=== PATIENT | female | born 1945 | race Caucasian/White ===

== ENCOUNTER → 2017-02-10 | Outpatient (CLI) | payer MEDICARE, OTHER ==
[2016-12-03 11:00] VITALS: BP 107/59
[~2017-02-10] MED LIST: ACET160L15 PO; BENZ1LOZ48 MM; DIPH1TAB PO; DOCU50LI14 PO; ERGO50002 PO; GUAI100L27 PO; GUAI600T47 PO; HYDR28OI2 TP; IBUP100O24 PO; IBUP200C9 PO; LOPE2CAP PO; LORA10TA3 PO; MAG355OR30 PO; MAGN2400 PO; MELA3TAB2 PO; MELO7.5T29 PO; OMEP20CA9 PO; PSEU30TA24 PO; PSYL369P PO; RANI150C PO; TOLN30CR2 TP
--- NOTE | 2017-02-10 12:43 | KCIC ---
Examination: 2 views of the chest HISTORY: History of cough, shortness of breath for one month COMPARISON: 12/01/2016 Findings : There is moderate size density in the left lung could be moderate pleural effusion or consolidation or less likely atelectasis. Patchy airspace opacities identified in the right lung base and left lingula likely pneumonia or atelectasis. IMPRESSION: 1. Moderate size density projects in the left lung probably moderate pleural effusion or consolidation. Patchy right lung base airspace opacities and left lingular airspace opacities likely pneumonia or atelectasis. CT chest is recommended. Electronically signed by: Heath Larson MD (02/10/2017 12:40 PM) [id number]
== END | disposition home or self-care (01) ==
LOC: KCIC 11:51
PROVIDERS: ATTEND Family Medicine
DX: R91.8 Other nonspecific abnormal finding of lung field (principal); R05 Cough; R06.02 Shortness of breath
CPT/HCPCS: 71020

== ENCOUNTER 2017-02-15 12:16 | Emergency (ER) | payer MEDICARE, OTHER ==
[~2017-02-15] VITALS: Ht 149.9 cm; Wt 45.4 kg
--- NOTE | 2017-02-15 14:56 | PHYS DOC ---
Past Medical History Past Medical History: Other Additional Past Medical Histor: SEASONAL ALLERGIES,MR Past Surgical History: Hip Replacement Additional Past Surgical Histo: BILATERAL Alcohol Use: None Drug Use: None Adult General Chief Complaint Chief Complaint: OTHER COMPLAINTS HPI HPI Patient is a 71 year old female who presents with mental retardation with progressive dysphagia over the past 1 year. Apparently some x-ray at outside facility was abnormal but we don't know what they were. The patient yells out but does not answer questions which is baseline. 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 Review of Systems Review of Systems Constitutional: Denies fever or chills [] Eyes: Denies change in visual acuity, redness, or eye pain [] HENT: Denies nasal congestion or sore throat [] Respiratory: Denies cough or shortness of breath [] Cardiovascular: No additional information not addressed in HPI [] GI: Denies abdominal pain, nausea, vomiting, bloody stools or diarrhea [] : Denies dysuria or hematuria [] Musculoskeletal: Denies back pain or joint pain [] Integument: Denies rash or skin lesions [] Neurologic: Denies headache, focal weakness or sensory changes [] Endocrine: Denies polyuria or polydipsia [] All other systems were reviewed and found to be within normal limits, except as documented in this note. Current Medications Current Medications Current Medications Medications (Trade) Dose Ordered Sig/Caden Start Time Stop Time Status Last Admin Dose Admin Info (Do NOT chart on this entry -- for MONITORING) 1 each PRN DAILY PRN 02/15/17 17:30 02/15/17 18:45 DC Iohexol (Omnipaque 300 Mg/ml) 200 ml 1X ONCE 02/15/17 15:00 02/15/17 15:01 DC Sodium Chloride 1,000 ml @ 1,000 mls/hr 1X ONCE 02/15/17 17:30 02/15/17 18:29 DC 02/15/17 17:21 1,000 MLS/HR Allergies Allergies Allergies Coded Allergies Type Severity Reaction Last Updated Verified No Known Drug Allergies 11/16/13 No Physical Exam Physical Exam Constitutional: Well developed, well nourished, no acute distress, non-toxic appearance. [] HENT: Normocephalic, atraumatic, bilateral external ears normal, oropharynx moist, no oral exudates, nose normal. Posterior pharynx is completely normal airway is patent no stridor no drooling. [] Eyes: PERRLA, EOMI, conjunctiva normal, no discharge. [] Neck: Normal range of motion, no tenderness, supple, no stridor. [] Cardiovascular:Heart rate regular rhythm, no murmur [] Lungs & Thorax: Bilateral breath sounds clear to auscultation [] Abdomen: Bowel sounds normal, soft, no tenderness, no masses, no pulsatile masses. [] Skin: Warm, dry, no erythema, no rash. [] Back: No tenderness, no CVA tenderness. [] Extremities: No tenderness, no cyanosis, no clubbing, ROM intact, no edema. [] Neurologic: Alert and oriented X 3, normal motor function, normal sensory function, no focal deficits noted. [] Psychologic: Affect normal, judgement normal, mood normal. [] Current Patient Data Vital Signs Vital Signs Date Time Temp Pulse Resp B/P (MAP) Pulse Ox O2 Delivery O2 Flow Rate FiO2 02/15/17 18:31 123 132/73 (92) 93 Room Air 02/15/17 14:07 97.8 18 97.8 Lab Values Laboratory Tests Test 02/15/17 14:49 White Blood Count 5.6 x10^3/uL (4.0-11.0) Red Blood Count 4.03 x10^6/uL (3.50-5.40) Hemoglobin 12.8 g/dL (12.0-15.5) Hematocrit 38.5 % (36.0-47.0) Mean Corpuscular Volume 96 fL (79-100) Mean Corpuscular Hemoglobin 32 pg (25-35) Mean Corpuscular Hemoglobin Concent 33 g/dL (31-37) Red Cell Distribution Width 15.0 % (11.5-14.5) H Platelet Count 431 x10^3/uL (140-400) H Neutrophils (%) (Auto) 65 % (31-73) Lymphocytes (%) (Auto) 21 % (24-48) L Monocytes (%) (Auto) 10 % (0-9) H Eosinophils (%) (Auto) 2 % (0-3) Basophils (%) (Auto) 1 % (0-3) Neutrophils # (Auto) 3.7 x10^3uL (1.8-7.7) Lymphocytes # (Auto) 1.2 x10^3/uL (1.0-4.8) Monocytes # (Auto) 0.6 x10^3/uL (0.0-1.1) Eosinophils # (Auto) 0.1 x10^3/uL (0.0-0.7) Basophils # (Auto) 0.1 x10^3/uL (0.0-0.2) Sodium Level 139 mmol/L (136-145) Potassium Level 5.2 mmol/L (3.5-5.1) H Chloride Level 104 mmol/L (98-107) Carbon Dioxide Level 31 mmol/L (21-32) Anion Gap 4 (6-14) L Blood Urea Nitrogen 14 mg/dL (7-20) Creatinine 0.7 mg/dL (0.6-1.0) Estimated GFR (Cockcroft-Gault) 83.0 BUN/Creatinine Ratio 20 (6-20) Glucose Level 82 mg/dL (70-99) Calcium Level 9.4 mg/dL (8.5-10.1) Total Bilirubin 0.5 mg/dL (0.2-1.0) Aspartate Amino Transferase (AST) 22 U/L (15-37) Alanine Aminotransferase (ALT) 15 U/L (14-59) Alkaline Phosphatase 102 U/L (46-116) Total Protein 7.9 g/dL (6.4-8.2) Albumin 2.6 g/dL (3.4-5.0) L Albumin/Globulin Ratio 0.5 (1.0-1.7) L Thyroid Stimulating Hormone (TSH) 1.683 uIU/mL (0.358-3.74) Laboratory Tests 02/15/17 14:49 Laboratory Tests 02/15/17 14:49 EKG EKG [] Radiology/Procedures Radiology/Procedures Swallowing study showed[ Shankle's diverticulum and cricopharyngeus prominence but no obstruction no lesions seen per radiology report] Course & Med Decision Making Course & Med Decision Making Pertinent Labs and Imaging studies reviewed. (See chart for details) [Check labs to gauge by mouth intake and try to obtain an esophagram to reestablish patency or if there is a lesion or stricture. Patient was able take by mouth during her stay in the emergency department. Esophagram showed no obstruction there was a Zenker's diverticulum and some prominence of the cricopharyngeus area. I discussed the case with the mid-level provider for ENT they are agreeable to following up in their office. As the patient will likely need an EGD. Patient is stable for dismissal for outpatient follow-up. Patient did have some persistent tachycardia prior to dismissal. We will plan to give a liter of normal saline we'll check an EKG. I believe some of this tachycardia appears to be more related to her behavior and agitation rather than actual dehydration. Do not suspect sepsis white count was normal no fever and her creatinine was normal arguing against any significant dehydration. TSH was normal. On dismissal, patient was smiling and very happy and requesting to eat food.] Dragon Disclaimer Dragon Disclaimer This electronic medical record was generated, in whole or in part, using a voice recognition dictation system. Departure Departure Impression: Primary Impression: Dysphagia Additional Impression: Zenker's hypopharyngeal diverticulum Disposition: 01 HOME, SELF-CARE Condition: STABLE Referrals: SANJANA PIZARRO MD (PCP) Problem Qualifiers MIKAYLA MORGAN MD Feb 15, 2017 14:56
[2017-02-15] MEDS ORDERED: IOHEXOL 300 MG/ML 50 ML VIAL. PO ONE (15:00)
[2017-02-15 15:10] LABS: BASO # 0.1 x10^3/uL (0.0-0.2); BASO % 1 % (0-3); EOS % 2 % (0-3); HEMATOCRIT 38.5 % (36.0-47.0); HEMOGLOBIN 12.8 g/dL (12.0-15.5); LYMPH # 1.2 x10^3/uL (1.0-4.8); LYMPH % 21 % (24-48); MEAN CORPUSCULAR HEMOGLOBIN 32 pg (25-35); MEAN CORPUSCULAR HGB CONC 33 g/dL (31-37); MEAN CORPUSCULAR VOLUME 96 fL (79-100); MONO % 10 % (0-9); NEUT % 65 % (31-73); PLATELET COUNT 431 x10^3/uL (140-400); RED BLOOD COUNT 4.03 x10^6/uL (3.50-5.40); WHITE BLOOD COUNT 5.6 x10^3/uL (4.0-11.0)
[2017-02-15 15:18] LABS: CALCIUM 9.4 mg/dL (8.5-10.1); CREATININE 0.7 mg/dL (0.6-1.0); POTASSIUM 5.2 mmol/L (3.5-5.1)
[2017-02-15 15:28] LABS: ALBUMIN 2.6 g/dL (3.4-5.0); ALBUMIN/GLOBULIN RATIO 0.5 (1.0-1.7); TOTAL BILIRUBIN 0.5 mg/dL (0.2-1.0); TOTAL PROTEIN 7.9 g/dL (6.4-8.2)
--- NOTE | 2017-02-15 15:42 | RAD ---
Limited esophagram, 02/15/2017: History: Dysphasia The study was compromised by the patient's inability to fully cooperate. Patient positioning is suboptimal. We were eventually able to convince her to ingest 2 consecutive drinks of the nonionic contrast. 1.9 minutes of fluoroscopy time was utilized. 5 dynamic fluoroscopic spot sequences were recorded. There is a prominent cricopharyngeal impression in the cervical esophagus with a small Zenker's diverticulum. Contrast does flow past this region into the thoracic esophagus. No thoracic obstructive process is seen. Contrast extends into the stomach. No javon aspiration into the trachea was observed. IMPRESSION: Limited exam demonstrating a cricopharyngeal bar with a small associated Zenkers diverticulum.
[2017-02-15] MEDS ORDERED: IV NORMAL SALINE 1000ML BAG 1,000 ML IV ONE (17:30)
[2017-02-15] MEDS ORDERED: CONTRAST GIVEN MC PRN (17:30)
[2017-02-15 18:31] VITALS: BP 132/73
--- NOTE | 2017-02-16 12:12 | EKG ---
[facility] [address] [place] [address] Test Date: 2017-02-15 Test Time: 17:31:17 Pat Name: FELECIA DICKSON Department: Room: Gender: F Director Of Market Intelligence: [place] : 1945 Requested By: MIKAYLA MORGNA Order Number: [id number] Reading MD: Gunnar Mendez Measurements Intervals [place] Rate: 124 P: -141 GA: 132 QRS: -14 QRSD: 88 T: 24 QT: 306 QTc: 443 Interpretive Statements SINUS TACHYCARDIA LEFTWARD AXIS QRS(T) CONTOUR ABNORMALITY CONSIDER ANTEROSEPTAL MYOCARDIAL DAMAGE POSSIBLY ABNORMAL ECG RI6.01 No previous ECG available for comparison Electronically Signed On 02-16-2017 16:01:38 ART CONSULTANT by Gunnar Mendez
== END 2017-02-15 18:44 | disposition home or self-care (01) ==
LOC: ER 12:16
DX: K22.5 Diverticulum of esophagus, acquired (principal); F79 Unspecified intellectual disabilities
CPT/HCPCS: 36415; 74220; 80053; 84443; 85025; 93005; 96360; 99285; J7030

== ENCOUNTER → 2017-11-07 | Outpatient (CLI) | payer MEDICARE, OTHER | END | disposition home or self-care (01) | LOC: US 11:05 | DX: I70.8 Atherosclerosis of other arteries (principal); I73.9 Peripheral vascular disease, unspecified; L97.929 Non-pressure chronic ulcer of unspecified part of left lower leg with unspecified severity; L97.919 Non-pressure chronic ulcer of unspecified part of right lower leg with unspecified severity | CPT/HCPCS: 93925 ==

== ENCOUNTER → 2017-11-08 | Outpatient (CLI) | payer MEDICARE, OTHER | END | disposition home or self-care (01) | LOC: PMGWOUND 09:19 | DX: S91.312A Laceration without foreign body, left foot, initial encounter (principal); S91.311A Laceration without foreign body, right foot, initial encounter; S81.812A Laceration without foreign body, left lower leg, initial encounter; S81.811A Laceration without foreign body, right lower leg, initial encounter; K21.9 Gastro-esophageal reflux disease without esophagitis; I48.91 Unspecified atrial fibrillation; I73.9 Peripheral vascular disease, unspecified; X58.XXXA Exposure to other specified factors, initial encounter; Y93.89 Activity, other specified; Y92.89 Other specified places as the place of occurrence of the external cause; Y99.8 Other external cause status | CPT/HCPCS: 99205 ==

== ENCOUNTER 2017-11-17 08:01 | Inpatient (IN) | payer MEDICARE, OTHER ==
[~2017-11-17] VITALS: Ht 154.9 cm; Wt 36.5 kg
[2017-11-17] VITALS (16 sets, daily range): BP systolic 115–146; BP diastolic 43–59
[~2017-11-17 08:01] MED LIST changes: -IBUP100O24 PO; +IBUP100O25 PO
[2017-11-17] MEDS ORDERED: PROPOFOL 50 ML IV ONE (08:56)
[2017-11-17] MEDS ORDERED: PROPOFOL 20 ML IV ONE (08:56)
[2017-11-17] MEDS ORDERED: MIDAZOLAM HCL/PF 2 MG/2 ML VIAL. ONE (08:56)
[2017-11-17] MEDS ORDERED: fentaNYL PF VIAL 100 MCG/2 ML VIAL ONE (08:56)
[2017-11-17 09:05] LABS: BASO % 1 % (0-3); EOS % 1 % (0-3); HEMATOCRIT 37.1 % (36.0-47.0); HEMOGLOBIN 12.9 g/dL (12.0-15.5); LYMPH % 20 % (24-48); MEAN CORPUSCULAR HEMOGLOBIN 34 pg (25-35); MEAN CORPUSCULAR HGB CONC 35 g/dL (31-37); MEAN CORPUSCULAR VOLUME 98 fL (79-100); MONO # 0.5 x10^3/uL (0.0-1.1); MONO % 10 % (0-9); NEUT # 3.2 x10^3uL (1.8-7.7); NEUT % 68 % (31-73); PLATELET COUNT 281 x10^3/uL (140-400); RED BLOOD COUNT 3.78 x10^6/uL (3.50-5.40); RED CELL DISTRIBUTION WIDTH 14.8 % (11.5-14.5); WHITE BLOOD COUNT 4.8 x10^3/uL (4.0-11.0)
[2017-11-17 09:09] LABS: CALCIUM 9.1 mg/dL (8.5-10.1); CREATININE 0.4 mg/dL (0.6-1.0); GFR 157.8; POTASSIUM 3.9 mmol/L (3.5-5.1)
[2017-11-17] MEDS ORDERED: PSEU30TA24 PO (09:14)
[2017-11-17] MEDS ORDERED: METO25TA4 PO (09:14)
[2017-11-17] MEDS ORDERED: DIPH25CA58 PO (09:14)
[2017-11-17] MEDS ORDERED: MELO7.5T29 PO (09:14)
[2017-11-17] MEDS ORDERED: [UNRECOGNIZED DRUG - CODE] PO (09:14)
[2017-11-17] MEDS ORDERED: IBUP-1027 PO (09:14)
[2017-11-17] MEDS ORDERED: ACET325T9 PO (09:14)
[2017-11-17] MEDS ORDERED: CYCL5TAB PO (09:14)
[2017-11-17] MEDS ORDERED: TIZA4TAB PO (09:14)
[2017-11-17] MEDS ORDERED: CLOT15CR5 TP (09:14)
[2017-11-17] MEDS ORDERED: POLY10DR3 EACHEYE (09:14)
[2017-11-17] MEDS ORDERED: HYDR-971 PO (09:14)
[2017-11-17] MEDS ORDERED: MAG355OR30 PO (09:14)
[2017-11-17] MEDS ORDERED: LORA10TA3 PO (09:14)
[2017-11-17] MEDS ORDERED: GUAI100L27 PO (09:14)
[2017-11-17] MEDS ORDERED: RANI150C PO (09:14)
[2017-11-17] MEDS ORDERED: IBUP100O25 PO (09:14)
[2017-11-17] MEDS ORDERED: HYDR59LO TP (09:14)
[2017-11-17] MEDS ORDERED: DOCU50LI14 PO (09:14)
[2017-11-17] MEDS ORDERED: LIDO30CR TP (09:14)
[2017-11-17] MEDS ORDERED: TOLN30CR2 TP (09:14)
[2017-11-17] MEDS ORDERED: IODIXANOL 320 MG/ML 100 ML VIAL. ONE (09:29)
[2017-11-17] MEDS ORDERED: HEPARIN for ARTERIAL LINE 1,500 ML ONE (09:30)
[2017-11-17] MEDS ORDERED: IODIXANOL 320MG/ML 50ML VIAL. ONE (09:30)
[2017-11-17] MEDS ORDERED: LIDOCAINE WITH 8.4% SOD BICARB 3 ML DISP.SYRIN. ONE (09:30)
[2017-11-17] MEDS ORDERED: LIDOCAINE WITH 8.4% SOD BICARB 3 ML DISP.SYRIN. IJ ONE (10:15)
[2017-11-17] MEDS ORDERED: IODIXANOL 320 MG/ML 100 ML VIAL. IART ONE (10:15)
[2017-11-17] MEDS ORDERED: SURGICEL FIBRILLAR 1X2 EACH. ONE (10:20)
[2017-11-17] MEDS ORDERED: IOHEXOL 300 MG/ML 100ML VIAL. ONE (10:20)
[2017-11-17] MEDS ORDERED: THROMBIN TOPICAL 20,000 UNIT SPRAY.SYRN KIT TP ONE (10:20)
[2017-11-17] MEDS ORDERED: GELATIN SPONGE SIZE 100. ONE (10:20)
[2017-11-17] MEDS ORDERED: CONTRAST GIVEN. MC PRN (10:30)
[2017-11-17] MEDS ORDERED: HEPARIN for IV BOLUS 10,000 UNIT/10 ML VIAL. IV ONE (11:15)
[2017-11-17] MEDS ORDERED: IV RINGERS,LACTATED 1000ML 1,000 ML IV SCH (11:23)
[2017-11-17] MEDS ORDERED: PROCHLORPERAZINE 10 MG/2 ML VIAL. IV PRN (11:30)
[2017-11-17] MEDS ORDERED: LIDOCAINE 1% PF 2 ML VIAL. ID PRN (11:30)
[2017-11-17] MEDS ORDERED: HYDROmorphone 2 MG/ML VIAL IV PRN (11:30)
[2017-11-17] MEDS ORDERED: fentaNYL PF VIAL 100 MCG/2 ML VIAL IV PRN ×2 (11:30)
[2017-11-17] MEDS ORDERED: ONDANSETRON PF 4 MG/2 ML VIAL. IV PRN ×2 (11:30→16:15)
[2017-11-17] MEDS ORDERED: MORPHINE SULFATE 2 MG/ML VIAL. IV PRN ×2 (11:30→16:15)
[2017-11-17] MEDS ORDERED: HEPARIN SODIUM 5,000 UNIT in IV NORMAL SALINE 500ML BAG 500 ML IRR ONE (12:00)
[2017-11-17] MEDS ORDERED: ePHEDrine PF IN SALINE 50 MG/5 ML DISP.SYRIN IV ONE (13:22)
--- NOTE | 2017-11-17 14:47 | OP ---
DATE OF SURGERY: 11/17/2017 ATTENDING PHYSICIAN: Johana Doss DO PREOPERATIVE DIAGNOSIS: Critical limb ischemia of the right lower extremity after failed Angio-Seal closure device. POSTOPERATIVE DIAGNOSIS: Critical limb ischemia of the right lower extremity after failed Angio-Seal closure device. PROCEDURES: 1. Right femoral exploration with femoral endarterectomy and bovine patch angioplasty. 2. Extraction of right common femoral artery Angio-Seal. 3. Right lower extremity femoral Dereck thrombectomy using #3 Dereck embolectomy catheter. ANESTHESIA: General. SPECIMENS: None. ESTIMATED BLOOD LOSS: 20 mL COMPLICATIONS: None. PREOPERATIVE INDICATIONS: The patient is a pleasant 72-year-old female with cerebral palsy, who was accompanied by her caregiver at the bedside. The patient underwent an Interventional Radiology angiogram procedure with no significant findings of arterial insufficiency. A closure device was inserted and deployed and then a problem was immediately recognized by Dr. Kelley that there might be a problem with the closure device. He checked with an ultrasound and there was occlusive flow within the common femoral artery. He immediately called our service line and we responded as an emergency. The patient was seen and evaluated in the preoperative area and found to have an exam consistent with right lower extremity critical limb ischemia. I did consent the patient's caregiver for the procedure and they demonstrated understanding and allowed us to proceed. OPERATIVE PROCEDURE: The patient was brought to the operating suite and placed in supine position. After establishing adequate general endotracheal anesthesia, the patient's right lower extremity was prepped and draped in sterile fashion. Next, a timeout procedure was performed. It was confirmed that the patient did receive appropriate preoperative antibiotics and the correct operative site was marked and draped. Following this, a right femoral incision was made and carried through the skin and subcutaneous tissue. Dissection was carried down to the common femoral artery where the common femoral artery was circumferentially dissected and controlled with vessel loop. Circumflex femoral vessels were also controlled with a vessel loop. Next, the distal common femoral artery was controlled with vessel loop. I was able to identify the entry point of the Angio-Seal as there was a string emanating from the central portion of the vessel. There was also visible thrombus within the lumen of the vessel and a palpable pulse in the proximal portion of the vessel, but no palpable pulse beyond the Angio-Seal closure device. Following this, the patient was administered heparin and this was allowed to circulate. Next, the proximal and distal artery was clamped and then a longitudinal arteriotomy was made and extended using a Manley scissor. The Angio-Seal closure device could be seen within the lumen of the vessel and the foot plate to the Angio-Seal had raised the intima on the posterior aspect of the artery, subsequently occluding arterial blood flow. The Angio-Seal device was removed and then I proceeded to use a Venus elevator to perform an endarterectomy of the vessel in this location. After I had performed the endarterectomy, I confirmed both endpoints to be stable. Next, I confirmed excellent inflow from the proximal common femoral artery. Following this, a #3 Dereck catheter was inserted into the distal femoral artery and withdrawn with no evidence of thrombus removed. Next, a bovine pericardial patch was brought to the field and this was sewn in place using 6-0 Prolene suture in running fashion. Prior to completing the patch, we did backbleed and flushed the vessels appropriately and then the patch was completed and flow was restored. The patient had excellent flow within the common femoral artery, which was palpable and also confirmed with Doppler. She also had Doppler signals at the posterior tibial artery and dorsalis pedis location at the foot. Next, after confirming hemostasis at the level of the patch, the wound was irrigated with antibiotic-impregnated solution and then fibrillar was placed overlying the patch. Following this, a multilayer closure using 2-0, 3-0, and 4-0 Monocryl was performed. Next Dermabond was applied to the skin. Following this, a sterile dressing was placed. The patient tolerated the procedure well and was transferred to the postanesthesia care unit in stable condition. JOHANA DOSS DO DR: Clementina JOB#: [id number] / [id number]
--- NOTE | 2017-11-17 15:19 | PDOC1 ---
History and Physical Date of Admission Date of Admission DATE: 11/17/17 TIME: 15:16 Identification/Chief Complaint Chief Complaint patient underwent an Interventional Radiology angiogram procedure with no significant findings of arterial insufficiency today . A closure device was inserted and deployed and then a problem was immediately recognized by Dr. Kelley that there might be a problem with the closure device. checked with an ultrasound and there was occlusive flow within the common femoral artery. The patient was seen and evaluated in the preoperative area and found to have an exam consistent with right lower extremity critical limb ischemia. Past Medical History Past Medical History Ms. Tiwari, is a 72 year old female, with confusion, agitation. No sick contacts, no fevers, no chills, no vomiting, no diarrhea other Hx limited Past Medical History CENTRAL NERVOUS SYSTEM: Other (MR) Endocrine: Diabetes Family History Family History: Family History Unknown Social History Smoke: No ALCOHOL: none Current Problem List Problem List Problems Medical Problems: (1) Hypoglycemia Status: Acute (2) Intellectual disability Status: Acute CENTRAL NERVOUS SYSTEM: Other Infectious disease: No pertinent hx Endocrine: Diabetes Family History Family History: Family History Unknown Social History Smoke: No ALCOHOL: none Drugs: None Current Medications Current Medications Current Medications Midazolam HCl (Versed) 2 mg STK-MED ONCE .ROUTE ; Start 11/17/17 at 08:56; Stop 11/17/17 at 08:57; Status DC Fentanyl Citrate (Fentanyl 2ml Vial) 100 mcg STK-MED ONCE .ROUTE ; Start at 08:56; Stop 11/17/17 at 08:57; Status DC Propofol 50 ml @ As Directed STK-MED ONCE IV ; Start 11/17/17 at 08:56; Stop at 08:57; Status DC Propofol 20 ml @ As Directed STK-MED ONCE IV ; Start 11/17/17 at 08:56; Stop at 08:57; Status DC Iodixanol (Visipaque 320) 100 ml STK-MED ONCE .ROUTE ; Start 11/17/17 at 09:29; Stop 11/17/17 at 09:30; Status DC Lidocaine/Sodium Bicarbonate (Buffered Lidocaine 1%) 3 ml STK-MED ONCE .ROUTE ; Start 11/17/17 at 09:30; Stop 11/17/17 at 09:31; Status DC Iodixanol (Visipaque 320) 50 ml STK-MED ONCE .ROUTE ; Start 11/17/17 at 09:30; Stop 11/17/17 at 09:31; Status DC Heparin Sodium/ Sodium Chloride 1,500 ml @ As Directed STK-MED ONCE .ROUTE ; Start 11/17/17 at 09:30; Stop 11/17/17 at 09:31; Status DC Heparin Sodium/ Sodium Chloride (HEPARIN for ARTERIAL LINE FLUSH) 1,000 unit 1X ONCE IART Last administered on 11/17/17at 10:53; Start 11/17/17 at 10:15; Stop 11/17/17 at 10:18; Status DC Heparin Sodium/ Sodium Chloride (HEPARIN for ARTERIAL LINE FLUSH) 1,000 unit 1X ONCE IART Last administered on 11/17/17at 10:53; Start 11/17/17 at 10:15; Stop 11/17/17 at 10:18; Status DC Lidocaine/Sodium Bicarbonate (Buffered Lidocaine 1%) 9 ml 1X ONCE IJ Last administered on 11/17/17at 10:56; Start 11/17/17 at 10:15; Stop 11/17/17 at 10:18 ; Status DC Iodixanol (Visipaque 320) 100 ml 1X ONCE IART Last administered on 11/17/17at 10:52; Start 11/17/17 at 10:15; Stop 11/17/17 at 10:18; Status DC Info (CONTRAST GIVEN -- Rx MONITORING) 1 each PRN DAILY PRN MC SEE COMMENTS; Start 11/17/17 at 10:30; Stop 11/19/17 at 10:29 Heparin Sodium (Porcine) (Heparin Sodium) 5,000 unit 1X ONCE IV Last administered on 11/17/17at 11:10; Start 11/17/17 at 11:15; Stop 11/17/17 at 11:16 ; Status DC Cefazolin Sodium 1 gm/Sodium Chloride 500 ml @ 500 mls/hr 1X ONCE IRR Last administered on 11/17/17at 12:40; Start 11/17/17 at 12:00; Stop 11/17/17 at 13:00 ; Status DC Gelatin (Gelfoam Size 100) 1 each STK-MED ONCE .ROUTE ; Start 11/17/17 at 10:20 ; Stop 11/17/17 at 11:21; Status DC Iohexol (Omnipaque 300 Mg/ml) 100 ml STK-MED ONCE .ROUTE ; Start 11/17/17 at 10: 20; Stop 11/17/17 at 11:21; Status DC Cellulose (Surgicel Fibrillar 1x2) 1 each STK-MED ONCE .ROUTE Last administered on 11/17/17at 13:31; Start 11/17/17 at 10:20; Stop 11/17/17 at 11:21 ; Status DC Thrombin 20,000 unit STK-MED ONCE TP ; Start 11/17/17 at 10:20; Stop 11/17/17 at 11:21; Status DC Heparin Sodium (Porcine) 5000 unit/Sodium Chloride 505 ml @ 505 mls/hr 1X ONCE IRR Last administered on 11/17/17at 12:40; Start 11/17/17 at 12:00; Stop at 13:00; Status DC Ondansetron HCl (Zofran) 4 mg PRN Q6HRS PRN IV NAUSEA/VOMITING; Start 11/17/17 at 11:30; Stop 11/17/17 at 18:00 Fentanyl Citrate (Fentanyl 2ml Vial) 25 mcg PRN Q5MIN PRN IV MILD PAIN; Start 11/17/17 at 11:30; Stop 11/18/17 at 11:29 Fentanyl Citrate (Fentanyl 2ml Vial) 50 mcg PRN Q5MIN PRN IV MODERATE TO SEVERE PAIN; Start 11/17/17 at 11:30; Stop 11/17/17 at 18:00 Morphine Sulfate (Morphine Sulfate) 1 mg PRN Q10MIN PRN IV SEVERE PAIN; Start 11/17/17 at 11:30; Stop 11/17/17 at 18:00 Ringer's Solution 1,000 ml @ 30 mls/hr Q24H IV ; Start 11/17/17 at 11:23; Stop 11/17/17 at 23:22 Lidocaine HCl (Xylocaine-Mpf 1% 2ml Vial) 2 ml PRN 1X PRN ID PRIOR TO IV START ; Start 11/17/17 at 11:30; Stop 11/17/17 at 18:00 Hydromorphone HCl (Dilaudid) 0.5 mg PRN Q10MIN PRN IV SEV PAIN, Second choice; Start 11/17/17 at 11:30; Stop 11/17/17 at 18:00 Prochlorperazine Edisylate (Compazine) 5 mg PACU PRN PRN IV NAUSEA, MRX1; Start 11/17/17 at 11:30; Stop 11/17/17 at 18:00 Cefazolin Sodium 50 ml @ As Directed STK-MED ONCE IV ; Start 11/17/17 at 11:34; Stop 11/17/17 at 12:36; Status DC Ephedrine Sulfate (ePHEDrine PF IN SALINE SYRINGE) 50 mg STK-MED ONCE IV ; Start 11/17/17 at 13:22; Stop 11/17/17 at 13:23; Status DC Active Scripts Active Reported Tizanidine Hcl 4 Mg Tablet 0.5 Tab PO TID Tinactin (Tolnaftate) 30 Gm Cream..g. 30 Gm TP Sudogest (Pseudoephedrine Hcl) 30 Mg Tablet 30 Mg PO Silace (Docusate Sodium) 50 Mg/5 Ml Liquid 50 Mg PO Rulox Suspension (Mag Hydrox/Al Hydrox/Simeth) 355 Ml Oral.susp 355 Ml PO Robafen (Guaifenesin) 100 Mg/5 Ml Liquid 100 Mg PO Meloxicam 7.5 Mg Tablet 1 Tab PO DAILY Lidocaine-Prilocaine Cream (Lidocaine/Prilocaine) 30 Gm Cream..g. 1 Rayna TP UD Ibuprofen 400 Mg Tablet 400 Mg PO PRN Q6HRS PRN Ibuprofen 100 Mg/5 Ml Oral.susp 5 Ml PO PRN Q6-8HRS Hydrocortisone 59 Ml Lotion 1 Rayna TP BID [place] 5-325 Tablet (Acetaminophen/Hydrocodone Bitart) 1 Each Tablet 1 Tab PO PRN Q4HRS PRN Benadryl (Diphenhydramine Hcl) 25 Mg Capsule 1 Cap PO QHS Cyclobenzaprine Hcl 5 Mg Tablet 1 Tab PO QHS Tylenol (Acetaminophen) 325 Mg Tablet 1-2 Tab PO QID Metoprolol Tartrate 25 Mg Tablet 0.5 Tab PO BID Loratadine 10 Mg Tablet 1 Tab PO DAILY Clotrimazole-Betamethasone Crm (Clotrimazole/Betamethasone Dip) 15 Gm Cream..g. 1 Rayna TP BID Reguloid (Psyllium Seed) 426 Gm Powder 426 Gm PO Ranitidine Hcl 150 Mg Capsule 150 Mg PO DAILY Polymyxin B-Tmp Eye Drops (Polymyxin B Sulf/Trimethoprim) 10 Ml Drops 1 Drop EACHEYE TID Melatonin 3 Mg Tablet 5 Mg PO QHS Hydrocortisone (Hydrocortisone Acetate) 28 Gm Oint...g. 28 Gm TP PRN TID PRN Tinactin (Tolnaftate) 30 Gm Cream..g. 30 Gm TP PRN BID PRN Silace (Docusate Sodium) 50 Mg/5 Ml Liquid 100 Mg PO PRN DAILY PRN Q-Pap (Acetaminophen) 160 Mg/5 Ml Liquid 160 Mg PO PRN Q4HRS PRN Loperamide (Loperamide Hcl) 2 Mg Capsule 2 Mg PO PRN Cepacol Sore Throat Lozenge (Benzocaine/Menthol) 1 Each Lozenge 1 Each MM PRN Q2HR PRN Suphedrine Pe Combo Pack Cplt (Diphenhydram/Pe/Dm/Acetamin/Gg) 1 Each Tablet.seq 1 Each PO PRN BID PRN Drisdol (Ergocalciferol (Vitamin D2)) 50,000 Unit Capsule 50,000 Unit PO WEEKLY Reguloid Powder (Psyllium Seed (With Sugar)) 369 Gm Powder 369 Gm PO DAILY Omeprazole 20 Mg Capsule.dr 1 Cap PO DAILY Mucinex (Guaifenesin) 600 Mg Tablet.er 1 Tab PO BID Loratadine 10 Mg Tablet 1 Tab PO DAILY Allergies Allergies: Coded Allergies: No Known Drug Allergies (Unverified , 11/17/17) ROS General: YES: Fatigue PSYCHOLOGICAL ROS: YES: Anxiety, Behavioral Disorder Hematological and Lymphatic: No: Bleeding Problems, Blood Clots, Blood Transfusions, Brusing, Night Sweats, Pallor, Swollen Lymph Nodes, Other Respiratory: No: Cough, Hemoptysis, Orthopnea, Pleuritic Pain, Shortness of breath, SOB with excertion, Sputum Changes, Stridor, Tachypnea, Wheezing, Other Gastrointestinal: No Nausea, No Vomiting, No Abdominal Pain, No Diarrhea, No Constipation, No Melena, No Hematochezia, No Other Musculoskeletal: Yes Gait Disturbance, Yes Muscle Pain Physical Exam General: Cooperative, mild distress HEENT: EOMI, Mucous membr. moist/pink Lungs: Clear to auscultation, Normal air movement Heart: S1S2, no gallops Breasts: Not examined Abdomen: Normal bowel sounds, Soft, No tenderness Rectal Exam: not examined Extremities: No cyanosis Neuro: Cranial nerves 3-12 NL Vitals Vitals Vital Signs Date Time Temp Pulse Resp B/P (MAP) Pulse Ox O2 Delivery O2 Flow Rate FiO2 11/17/17 11:49 66 20 126/49 100 Nasal Cannula 2 11/17/17 11:34 97.0 97.0 Labs Labs Laboratory Tests Test 11/17/17 08:50 White Blood Count 4.8 x10^3/uL (4.0-11.0) Red Blood Count 3.78 x10^6/uL (3.50-5.40) Hemoglobin 12.9 g/dL (12.0-15.5) Hematocrit 37.1 % (36.0-47.0) Mean Corpuscular Volume 98 fL (79-100) Mean Corpuscular Hemoglobin 34 pg (25-35) Mean Corpuscular Hemoglobin Concent 35 g/dL (31-37) Red Cell Distribution Width 14.8 % (11.5-14.5) Platelet Count 281 x10^3/uL (140-400) Neutrophils (%) (Auto) 68 % (31-73) Lymphocytes (%) (Auto) 20 % (24-48) Monocytes (%) (Auto) 10 % (0-9) Eosinophils (%) (Auto) 1 % (0-3) Basophils (%) (Auto) 1 % (0-3) Neutrophils # (Auto) 3.2 x10^3uL (1.8-7.7) Lymphocytes # (Auto) 1.0 x10^3/uL (1.0-4.8) Monocytes # (Auto) 0.5 x10^3/uL (0.0-1.1) Eosinophils # (Auto) 0.0 x10^3/uL (0.0-0.7) Basophils # (Auto) 0.0 x10^3/uL (0.0-0.2) Prothrombin Time 13.0 SEC (11.7-14.0) Prothromb Time International Ratio 1.0 (0.8-1.1) Sodium Level 137 mmol/L (136-145) Potassium Level 3.9 mmol/L (3.5-5.1) Chloride Level 103 mmol/L (98-107) Carbon Dioxide Level 33 mmol/L (21-32) Anion Gap 1 (6-14) Blood Urea Nitrogen 25 mg/dL (7-20) Creatinine 0.4 mg/dL (0.6-1.0) Estimated GFR (Cockcroft-Gault) 157.8 Glucose Level 84 mg/dL (70-99) Calcium Level 9.1 mg/dL (8.5-10.1) Laboratory Tests Test 11/17/17 08:50 White Blood Count 4.8 x10^3/uL (4.0-11.0) Red Blood Count 3.78 x10^6/uL (3.50-5.40) Hemoglobin 12.9 g/dL (12.0-15.5) Hematocrit 37.1 % (36.0-47.0) Mean Corpuscular Volume 98 fL (79-100) Mean Corpuscular Hemoglobin 34 pg (25-35) Mean Corpuscular Hemoglobin Concent 35 g/dL (31-37) Red Cell Distribution Width 14.8 % (11.5-14.5) Platelet Count 281 x10^3/uL (140-400) Neutrophils (%) (Auto) 68 % (31-73) Lymphocytes (%) (Auto) 20 % (24-48) Monocytes (%) (Auto) 10 % (0-9) Eosinophils (%) (Auto) 1 % (0-3) Basophils (%) (Auto) 1 % (0-3) Neutrophils # (Auto) 3.2 x10^3uL (1.8-7.7) Lymphocytes # (Auto) 1.0 x10^3/uL (1.0-4.8) Monocytes # (Auto) 0.5 x10^3/uL (0.0-1.1) Eosinophils # (Auto) 0.0 x10^3/uL (0.0-0.7) Basophils # (Auto) 0.0 x10^3/uL (0.0-0.2) Prothrombin Time 13.0 SEC (11.7-14.0) Prothromb Time International Ratio 1.0 (0.8-1.1) Sodium Level 137 mmol/L (136-145) Potassium Level 3.9 mmol/L (3.5-5.1) Chloride Level 103 mmol/L (98-107) Carbon Dioxide Level 33 mmol/L (21-32) Anion Gap 1 (6-14) Blood Urea Nitrogen 25 mg/dL (7-20) Creatinine 0.4 mg/dL (0.6-1.0) Estimated GFR (Cockcroft-Gault) 157.8 Glucose Level 84 mg/dL (70-99) Calcium Level 9.1 mg/dL (8.5-10.1) VTE Prophylaxis Ordered VTE Prophylaxis Devices: Yes VTE Pharmacological Prophylaxi: Yes Assessment/Plan Assessment/Plan impression vascular occlusion diabetes mental retardation plan Emergent Dissection was carried down to the common femoral artery , BY DR [id number] no palpable pulse beyond the Angio-Seal closure device. in OR The Angio- Seal device was removed pt transferred to icu bed 107 home meds restarted 36 min cc time CUONG CORTES MD Nov 17, 2017 15:18
[2017-11-17] MEDS ORDERED: LIDOCAINE/PRILOCAINE TOPICAL CREAM 5GM TUBE. TP PRN (15:30)
[2017-11-17] MEDS ORDERED: DOCUSATE 100 MG/10 ML SOLUTION. PO PRN (15:30)
[2017-11-17] MEDS ORDERED: HYDROcodone/APAP 5/325MG 1 TAB TABLET PO PRN (15:30)
[2017-11-17] MEDS ORDERED: ACETAMINOPHEN 325 MG TABLET. PO PRN ×3 (15:30→16:15)
[2017-11-17] MEDS ORDERED: ACETAMINOPHEN 160 MG PO PRN (15:30)
[2017-11-17] MEDS ORDERED: BENZOCAINE/MENTHOL LOZENGE. MM PRN (15:30)
[2017-11-17] MEDS ORDERED: HYDROCORTISONE 1% TOPICAL OINTMENT 30GM TUBE. TP PRN ×2 (16:00→16:30)
[2017-11-17] MEDS ORDERED: MAG HYDROX/ALUMINUM HYD/SIMETH 30 ML ORAL.SUSP PO PRN (16:15)
[2017-11-17] MEDS ORDERED: oxyCODONE IR 5 MG TABLET PO PRN (16:15)
[2017-11-17] MEDS ORDERED: CALCIUM CARBONATE 500 MG TAB.CHEW PO PRN (16:15)
[2017-11-17] MEDS ORDERED: 0.9 % SODIUM CHLORIDE 10 ML DISP.SYRIN. IV PRN (16:15)
[2017-11-17] MEDS ORDERED: NALOXONE 0.4 MG/ML VIAL. IV PRN (16:15)
[2017-11-17] MEDS: tiZANidine 4 MG TABLET. PO SCH ×2 (16:49→23:00)
[2017-11-17] MEDS: IV NORMAL SALINE 1000ML BAG 1,000 ML IV SCH (16:50)
[2017-11-17] MEDS ORDERED: ceFAZolin SODIUM 1 GM in IV DEXTROSE 5% 50 ML IV SCH (18:00)
[2017-11-17] MEDS: ceFAZolin SODIUM IV Push 1 GM VIAL. IVP SCH (18:14)
[2017-11-17] MEDS: ACETAMINOPHEN 325 MG TABLET. PO SCH (20:59)
[2017-11-17] MEDS ORDERED: guaiFENesin ORAL 200 MG/10 ML LIQUID. PO SCH (21:00)
[2017-11-17] MEDS ORDERED: DOCUSATE 100 MG/10 ML SOLUTION. PO SCH (21:00)
[2017-11-17] MEDS ORDERED: NON FORMULARY ITEM (Hydrocortisone 1 APP) TP SCH (21:00)
[2017-11-17] MEDS: CLOTRIMAZOLE/BETAMETH 1%-0.05% TOPICAL CREAM 15GM TUBE. TP SCH (23:01)
[2017-11-17] MEDS: SENNOSIDES/DOCUSATE 8.6/50MG TABLET. PO SCH (23:01)
[2017-11-17] MEDS: METOPROLOL TART IMMED RELEASE 25 MG TABLET. PO SCH (23:03)
[2017-11-17] MEDS: CYCLOBENZAPRINE 10 MG TABLET. PO SCH (23:03)
[2017-11-17] MEDS: DOCUSATE SODIUM 100 MG CAPSULE. PO SCH (23:04)
[2017-11-18] VITALS (13 sets, daily range): BP systolic 86–162; BP diastolic 42–69
[2017-11-18] MEDS: ceFAZolin SODIUM IV Push 1 GM VIAL. IVP SCH ×2 (03:21→06:00)
[2017-11-18] MEDS: ACETAMINOPHEN 325 MG TABLET. PO SCH ×3 (06:39→21:24)
[2017-11-18] MEDS ORDERED: ENOXAPARIN 40 MG/0.4 ML SYRINGE. SQ SCH (09:00)
[2017-11-18] MEDS: ENOXAPARIN 30 MG/0.3 ML SYRINGE. SQ SCH (09:08)
[2017-11-18] MEDS: PANTOPRAZOLE 40 MG TABLET.DR. PO SCH (09:08)
[2017-11-18] MEDS: FAMOTIDINE 20 MG TABLET. PO SCH (09:09)
[2017-11-18] MEDS: tiZANidine 4 MG TABLET. PO SCH ×3 (09:09→21:24)
[2017-11-18] MEDS: CETIRIZINE HCL 10 MG TABLET. PO SCH (09:09)
[2017-11-18] MEDS: DOCUSATE SODIUM 100 MG CAPSULE. PO SCH ×2 (09:10→21:00)
[2017-11-18] MEDS: METOPROLOL TART IMMED RELEASE 25 MG TABLET. PO SCH ×2 (09:10→21:25)
[2017-11-18] MEDS: SENNOSIDES/DOCUSATE 8.6/50MG TABLET. PO SCH ×2 (09:10→21:24)
[2017-11-18] MEDS: ASPIRIN ENTERIC COATED 81 MG TABLET.DR. PO SCH (09:11)
[2017-11-18] MEDS: CLOTRIMAZOLE/BETAMETH 1%-0.05% TOPICAL CREAM 15GM TUBE. TP SCH ×2 (09:11→21:00)
[2017-11-18] MEDS: PSYLLIUM HUSK (SUGAR FREE) 1 PKT PACKET PO SCH (09:11)
[2017-11-18] MEDS: IV NORMAL SALINE 1000ML BAG 1,000 ML IV SCH ×2 (09:14→23:03)
--- NOTE | 2017-11-18 12:16 | RAD ---
11/17/2017 1. Abdominal aortogram 2. Pelvic angiography 3. Bilateral lower extremity angiography Discussion: The risks and benefits of the procedure were discussed the patient and her long-term aged or disabled care worker. Informed consent was obtained. The patient was brought to the fluoroscopy suite. Sedation was provided by the anesthesia department. The right groin was prepped and draped using sterile barrier technique. All elements of maximal sterile barrier technique including the use of a cap, mask, sterile gown, sterile gloves, large sterile sheet, appropriate hand hygiene, and 2% chlorhexidine for cutaneous antisepsis (or acceptable alternative antiseptic per current guidelines) were followed for this procedure. 1% lidocaine was administered for local anesthesia to the right groin. Ultrasound evaluation demonstrates right common femoral artery to be patent. The right common femoral artery was accessed using direct ultrasound guidance. Reference ultrasound images were saved the medical record. Micropuncture technique was used. A 5 [place] sheath was placed. An Omni flush catheter was advanced into the abdominal aorta. Abdominal aortogram was obtained. No evidence of abdominal aortic aneurysm is identified. An aortic branch vessels appear grossly patent. Mild tapering of the distal abdominal aorta is noted. 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 10-20% stenosis of the left carotid artery also noted. The bifurcation was crossed. Angiography of the lower extremity was obtained demonstrating no evidence of hemodialysis significant stenosis. Three-vessel runoff is seen on the left. Pressure measurements were obtained across the right common iliac lesion which demonstrated a systolic pressure in the abdominal aorta of 114. Just beyond the areas of stenosis pressure measurement was 111 mmHg which does not represent significant drop. Right lower extremity angiography was performed demonstrating no flow-limiting stenosis or occlusion. An Angio-Seal was then deployed through the right common femoral sheath to achieve hemostasis. Following deployment of the Angio-Seal device the more distal femoral pulse were nonpalpable, whereas prior to closure device placement the femoral pulses readily palpable throughout the proximal thigh. Ultrasound evaluation immediately performed showing acute occlusion of the femoral artery with echogenic material consistent with a intraluminal Angio-Seal placement. The patient was immediately heparinized and a vascular surgery consultation obtained. The patient was taken to the operating room where a common femoral exploration demonstrates Angio-Seal device to be intraluminal with associated intimal dissection. Endarterectomy with bovine pericardial patch was performed which restored blood flow to the right lower extremity. Patient was admitted for observation tolerated surgery well. Impression: 1. 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 2. No other hemodynamically significant stenosis involving the major arteries of the bilateral lower extremities 3. Occlusion of the right common femoral artery following intraluminal Angio-Seal device placement. Emergent endarterectomy was performed to restore blood flow to the right lower extremity. Fluoroscopy time: 8.4 min Dose area product: 67 Gycm2 Sedation: Provided by the anesthesia department
--- NOTE | 2017-11-18 14:38 | PDOC ---
PROGRESS NOTES Chief Complaint Chief Complaint vascular occlusion R femoral artery diabetes mental retardation Vitals Vitals Vital Signs Date Time Temp Pulse Resp B/P (MAP) Pulse Ox O2 Delivery O2 Flow Rate FiO2 11/18/17 12:00 75 14 100/54 (69) 93 Room Air 11/18/17 07:00 97.6 97.6 11/17/17 11:49 2 Physical Exam General: Cooperative, mild distress Heart: Regular rate, Normal S1 Lungs: Clear Abdomen: Normal bowel sounds, Soft, No tenderness Extremities: No cyanosis Skin: No rashes Review of Systems Review of Systems unable to obtain Assessment and Plan Assessmemt and Plan R femoral oclusion vascular occlusion diabetes mental retardation plan Emergent Dissection was carried down to the common femoral artery , BY DR Donohue no palpable pulse beyond the Angio-Seal closure device. in OR The Angio- Seal device was removed pt transferred to icu bed 107 home meds labs PTOT Wound care Comment Review of Relevant I have reviewed the following items morteza (where applicable) has been applied. Labs Laboratory Tests Test 11/17/17 08:50 White Blood Count 4.8 x10^3/uL (4.0-11.0) Red Blood Count 3.78 x10^6/uL (3.50-5.40) Hemoglobin 12.9 g/dL (12.0-15.5) Hematocrit 37.1 % (36.0-47.0) Mean Corpuscular Volume 98 fL (79-100) Mean Corpuscular Hemoglobin 34 pg (25-35) Mean Corpuscular Hemoglobin Concent 35 g/dL (31-37) Red Cell Distribution Width 14.8 % (11.5-14.5) Platelet Count 281 x10^3/uL (140-400) Neutrophils (%) (Auto) 68 % (31-73) Lymphocytes (%) (Auto) 20 % (24-48) Monocytes (%) (Auto) 10 % (0-9) Eosinophils (%) (Auto) 1 % (0-3) Basophils (%) (Auto) 1 % (0-3) Neutrophils # (Auto) 3.2 x10^3uL (1.8-7.7) Lymphocytes # (Auto) 1.0 x10^3/uL (1.0-4.8) Monocytes # (Auto) 0.5 x10^3/uL (0.0-1.1) Eosinophils # (Auto) 0.0 x10^3/uL (0.0-0.7) Basophils # (Auto) 0.0 x10^3/uL (0.0-0.2) Prothrombin Time 13.0 SEC (11.7-14.0) Prothromb Time International Ratio 1.0 (0.8-1.1) Sodium Level 137 mmol/L (136-145) Potassium Level 3.9 mmol/L (3.5-5.1) Chloride Level 103 mmol/L (98-107) Carbon Dioxide Level 33 mmol/L (21-32) Anion Gap 1 (6-14) Blood Urea Nitrogen 25 mg/dL (7-20) Creatinine 0.4 mg/dL (0.6-1.0) Estimated GFR (Cockcroft-Gault) 157.8 Glucose Level 84 mg/dL (70-99) Calcium Level 9.1 mg/dL (8.5-10.1) Medications Current Medications Midazolam HCl (Versed) 2 mg STK-MED ONCE .ROUTE ; Start 11/17/17 at 08:56; Stop 11/17/17 at 08:57; Status DC Fentanyl Citrate (Fentanyl 2ml Vial) 100 mcg STK-MED ONCE .ROUTE ; Start at 08:56; Stop 11/17/17 at 08:57; Status DC Propofol 50 ml @ As Directed STK-MED ONCE IV ; Start 11/17/17 at 08:56; Stop at 08:57; Status DC Propofol 20 ml @ As Directed STK-MED ONCE IV ; Start 11/17/17 at 08:56; Stop at 08:57; Status DC Iodixanol (Visipaque 320) 100 ml STK-MED ONCE .ROUTE ; Start 11/17/17 at 09:29; Stop 11/17/17 at 09:30; Status DC Lidocaine/Sodium Bicarbonate (Buffered Lidocaine 1%) 3 ml STK-MED ONCE .ROUTE ; Start 11/17/17 at 09:30; Stop 11/17/17 at 09:31; Status DC Iodixanol (Visipaque 320) 50 ml STK-MED ONCE .ROUTE ; Start 11/17/17 at 09:30; Stop 11/17/17 at 09:31; Status DC Heparin Sodium/ Sodium Chloride 1,500 ml @ As Directed STK-MED ONCE .ROUTE ; Start 11/17/17 at 09:30; Stop 11/17/17 at 09:31; Status DC Heparin Sodium/ Sodium Chloride (HEPARIN for ARTERIAL LINE FLUSH) 1,000 unit 1X ONCE IART Last administered on 11/17/17at 10:53; Start 11/17/17 at 10:15; Stop 11/17/17 at 10:18; Status DC Heparin Sodium/ Sodium Chloride (HEPARIN for ARTERIAL LINE FLUSH) 1,000 unit 1X ONCE IART Last administered on 11/17/17at 10:53; Start 11/17/17 at 10:15; Stop 11/17/17 at 10:18; Status DC Lidocaine/Sodium Bicarbonate (Buffered Lidocaine 1%) 9 ml 1X ONCE IJ Last administered on 11/17/17at 10:56; Start 11/17/17 at 10:15; Stop 11/17/17 at 10:18 ; Status DC Iodixanol (Visipaque 320) 100 ml 1X ONCE IART Last administered on 11/17/17at 10:52; Start 11/17/17 at 10:15; Stop 11/17/17 at 10:18; Status DC Info (CONTRAST GIVEN -- Rx MONITORING) 1 each PRN DAILY PRN MC SEE COMMENTS; Start 11/17/17 at 10:30; Stop 11/19/17 at 10:29 Heparin Sodium (Porcine) (Heparin Sodium) 5,000 unit 1X ONCE IV Last administered on 11/17/17at 11:10; Start 11/17/17 at 11:15; Stop 11/17/17 at 11:16 ; Status DC Cefazolin Sodium 1 gm/Sodium Chloride 500 ml @ 500 mls/hr 1X ONCE IRR Last administered on 11/17/17at 12:40; Start 11/17/17 at 12:00; Stop 11/17/17 at 13:00 ; Status DC Gelatin (Gelfoam Size 100) 1 each STK-MED ONCE .ROUTE ; Start 11/17/17 at 10:20 ; Stop 11/17/17 at 11:21; Status DC Iohexol (Omnipaque 300 Mg/ml) 100 ml STK-MED ONCE .ROUTE ; Start 11/17/17 at 10: 20; Stop 11/17/17 at 11:21; Status DC Cellulose (Surgicel Fibrillar 1x2) 1 each STK-MED ONCE .ROUTE Last administered on 11/17/17at 13:31; Start 11/17/17 at 10:20; Stop 11/17/17 at 11:21 ; Status DC Thrombin 20,000 unit STK-MED ONCE TP ; Start 11/17/17 at 10:20; Stop 11/17/17 at 11:21; Status DC Heparin Sodium (Porcine) 5000 unit/Sodium Chloride 505 ml @ 505 mls/hr 1X ONCE IRR Last administered on 11/17/17at 12:40; Start 11/17/17 at 12:00; Stop at 13:00; Status DC Ondansetron HCl (Zofran) 4 mg PRN Q6HRS PRN IV NAUSEA/VOMITING; Start 11/17/17 at 11:30; Stop 11/17/17 at 16:02; Status DC Fentanyl Citrate (Fentanyl 2ml Vial) 25 mcg PRN Q5MIN PRN IV MILD PAIN; Start 11/17/17 at 11:30; Stop 11/17/17 at 16:03; Status DC Fentanyl Citrate (Fentanyl 2ml Vial) 50 mcg PRN Q5MIN PRN IV MODERATE TO SEVERE PAIN; Start 11/17/17 at 11:30; Stop 11/17/17 at 16:03; Status DC Morphine Sulfate (Morphine Sulfate) 1 mg PRN Q10MIN PRN IV SEVERE PAIN; Start 11/17/17 at 11:30; Stop 11/17/17 at 16:03; Status DC Ringer's Solution 1,000 ml @ 30 mls/hr Q24H IV ; Start 11/17/17 at 11:23; Stop 11/17/17 at 16:03; Status DC Lidocaine HCl (Xylocaine-Mpf 1% 2ml Vial) 2 ml PRN 1X PRN ID PRIOR TO IV START ; Start 11/17/17 at 11:30; Stop 11/17/17 at 16:03; Status DC Hydromorphone HCl (Dilaudid) 0.5 mg PRN Q10MIN PRN IV SEV PAIN, Second choice; Start 11/17/17 at 11:30; Stop 11/17/17 at 16:03; Status DC Prochlorperazine Edisylate (Compazine) 5 mg PACU PRN PRN IV NAUSEA, MRX1; Start 11/17/17 at 11:30; Stop 11/17/17 at 16:03; Status DC Cefazolin Sodium 50 ml @ As Directed STK-MED ONCE IV ; Start 11/17/17 at 11:34; Stop 11/17/17 at 12:36; Status DC Ephedrine Sulfate (ePHEDrine PF IN SALINE SYRINGE) 50 mg STK-MED ONCE IV ; Start 11/17/17 at 13:22; Stop 11/17/17 at 13:23; Status DC Acetaminophen (Tylenol) 325 mg PRN QID PRN PO MILD PAIN; Start 11/17/17 at 15: 30; Stop 11/17/17 at 16:05; Status DC Throat Lozenges (Cepacol Sore Throat Lozenge) 1 taylor PRN Q2HR PRN MM sore throat ; Start 11/17/17 at 15:30 Betamethasone/ Clotrimazole (Lotrisone) 1 ana BID TP Last administered on at 09:11; Start 11/17/17 at 21:00 Docusate Sodium (Colace Solution) 50 mg BID PO ; Start 11/17/17 at 21:00; Status Cancel Docusate Sodium (Colace Solution) 100 mg PRN DAILY PRN PO CONSTIPATION; Start 11/17/17 at 15:30 Ergocalciferol (Vitamin D2) 50,000 unit Mo PO ; Start 11/21/17 at 09:00 Guaifenesin (Mucinex) 600 mg BID PO Last administered on 11/18/17at 09:10; Start 11/17/17 at 21:00 Guaifenesin (Robitussin) 100 mg BID PO ; Start 11/17/17 at 21:00; Status UNV Acetaminophen/ Hydrocodone Bitart (Lortab 5/325) 1 tab PRN Q4HRS PRN PO MODERATE PAIN; Start 11/17/17 at 15:30 Lidocaine/ Prilocaine (Emla) 1 ana PRN BID PRN TP MILD PAIN; Start 11/17/17 at 15:30 Metoprolol Tartrate (Lopressor) 12.5 mg BID PO Last administered on 11/18/17at 09:10; Start 11/17/17 at 21:00 Non-Formulary Medication (Acetaminophen (Q-Pap)) 160 mg PRN Q4HRS PRN PO PAIN; Start 11/17/17 at 15:30; Status UNV Cyclobenzaprine HCl (Flexeril) 5 mg QHS PO Last administered on 11/17/17at 23:03 ; Start 11/17/17 at 21:00 Non-Formulary Medication (Hydrocortisone ) 1 ana BID TP ; Start 11/17/17 at 21: 00; Status UNV Hydrocortisone (Cortaid) 1 ana PRN TID PRN TP ITCHING; Start 11/17/17 at 16:00 ; Stop 11/17/17 at 16:28; Status DC Pantoprazole Sodium (Protonix) 40 mg DAILYAC PO Last administered on 11/18/17at 09:08; Start 11/18/17 at 07:30 Psyllium Hydrophilic Mucilloid (Metamucil Fiber Packet) 1 pkt DAILY PO Last administered on 11/18/17at 09:11; Start 11/18/17 at 09:00 Famotidine (Pepcid) 20 mg DAILY PO Last administered on 11/18/17at 09:09; Start 11/18/17 at 09:00 Tizanidine HCl (Zanaflex) 2 mg TID PO Last administered on 11/18/17at 09:09; Start 11/17/17 at 16:00 Cetirizine HCl (ZyrTEC) 10 mg DAILY PO Last administered on 11/18/17at 09:09; Start 11/18/17 at 09:00 Acetaminophen (Tylenol) 650 mg PRN QID PRN PO MILD PAIN; Start 11/17/17 at 15: 45; Stop 11/17/17 at 16:05; Status DC Aspirin (Ecotrin) 81 mg DAILYWBKFT PO Last administered on 11/18/17at 09:11; Start 11/18/17 at 08:00 Oxycodone HCl (Roxicodone) 5 mg PRN Q3HRS PRN PO SEVERE PAIN Last administered on 11/17/17at 20:59; Start 11/17/17 at 16:15 Al Hydroxide/Mg Hydroxide (Mylanta Plus Xs) 30 ml PRN Q3HRS PRN PO HEARTBURN / GAS; Start 11/17/17 at 16:15 Calcium Carbonate/ Glycine (Tums) 500 mg PRN Q3HRS PRN PO INDIGESTION; Start at 16:15 Enoxaparin Sodium (Lovenox 40mg Syringe) 40 mg Q24H SQ ; Start 11/18/17 at 09:00 ; Stop 11/18/17 at 09:00; Status DC Sodium Chloride (Normal Saline Flush) 3 ml QSHIFT PRN IV AFTER MEDS AND BLOOD DRAWS; Start 11/17/17 at 16:15 Sodium Chloride 1,000 ml @ 65 mls/hr [id number] IV Last administered on at 09:14; Start 11/17/17 at 16:15 Acetaminophen (Tylenol) 650 mg PRN Q6HRS PRN PO Headaches, Temp > 101.5F; Start 11/17/17 at 16:15 Acetaminophen (Tylenol) 650 mg Q8HRS PO Last administered on 11/18/17at 06:39; Start 11/17/17 at 22:00 Morphine Sulfate (Morphine Sulfate) 1 mg PRN Q1HR PRN IV PAIN Last administered on 11/17/17at 23:25; Start 11/17/17 at 16:15 Senna/Docusate Sodium (Senna Plus) 1 tab BID PO Last administered on 11/18/17at 09:10; Start 11/17/17 at 21:00 Docusate Sodium (Colace) 100 mg BID PO Last administered on 11/18/17at 09:10; Start 11/17/17 at 21:00 Ondansetron HCl (Zofran) 4 mg PRN Q6HRS PRN IV NAUESA, 1ST CHOICE; Start at 16:15 Naloxone HCl (Narcan) 0.1 mg PRN Q2MIN PRN IV ADMIN; Start 11/17/17 at 16:15 Cefazolin Sodium 1 gm/Dextrose 50 ml @ 100 mls/hr Q6H IV ; Start 11/17/17 at 18 :00; Stop 11/18/17 at 06:29; Status Cancel Cefazolin Sodium (Ancef) 1 gm Q6H IVP Last administered on 11/18/17at 06:00; Start 11/17/17 at 18:00; Stop 11/18/17 at 06:01; Status DC Hydrocortisone (Cortaid) 1 ana PRN TID PRN TP ITCHING; Start 11/17/17 at 16:30 Enoxaparin Sodium (Lovenox 30mg Syringe) 30 mg Q24H SQ Last administered on at 09:08; Start 11/18/17 at 09:00 Active Scripts Active Reported Tizanidine Hcl 4 Mg Tablet 0.5 Tab PO TID Tinactin (Tolnaftate) 30 Gm Cream..g. 30 Gm TP Sudogest (Pseudoephedrine Hcl) 30 Mg Tablet 30 Mg PO Silace (Docusate Sodium) 50 Mg/5 Ml Liquid 50 Mg PO Rulox Suspension (Mag Hydrox/Al Hydrox/Simeth) 355 Ml Oral.susp 355 Ml PO Robafen (Guaifenesin) 100 Mg/5 Ml Liquid 100 Mg PO Meloxicam 7.5 Mg Tablet 1 Tab PO DAILY Lidocaine-Prilocaine Cream (Lidocaine/Prilocaine) 30 Gm Cream..g. 1 Ana TP UD Ibuprofen 400 Mg Tablet 400 Mg PO PRN Q6HRS PRN Ibuprofen 100 Mg/5 Ml Oral.susp 5 Ml PO PRN Q6-8HRS Hydrocortisone 59 Ml Lotion 1 Ana TP BID Bodega 5-325 Tablet (Acetaminophen/Hydrocodone Bitart) 1 Each Tablet 1 Tab PO PRN Q4HRS PRN Benadryl (Diphenhydramine Hcl) 25 Mg Capsule 1 Cap PO QHS Cyclobenzaprine Hcl 5 Mg Tablet 1 Tab PO QHS Tylenol (Acetaminophen) 325 Mg Tablet 1-2 Tab PO QID Metoprolol Tartrate 25 Mg Tablet 0.5 Tab PO BID Loratadine 10 Mg Tablet 1 Tab PO DAILY Clotrimazole-Betamethasone Crm (Clotrimazole/Betamethasone Dip) 15 Gm Cream..g. 1 Ana TP BID Reguloid (Psyllium Seed) 426 Gm Powder 426 Gm PO Ranitidine Hcl 150 Mg Capsule 150 Mg PO DAILY Polymyxin B-Tmp Eye Drops (Polymyxin B Sulf/Trimethoprim) 10 Ml Drops 1 Drop EACHEYE TID Melatonin 3 Mg Tablet 5 Mg PO QHS Hydrocortisone (Hydrocortisone Acetate) 28 Gm Oint...g. 28 Gm TP PRN TID PRN Tinactin (Tolnaftate) 30 Gm Cream..g. 30 Gm TP PRN BID PRN Silace (Docusate Sodium) 50 Mg/5 Ml Liquid 100 Mg PO PRN DAILY PRN Q-Pap (Acetaminophen) 160 Mg/5 Ml Liquid 160 Mg PO PRN Q4HRS PRN Loperamide (Loperamide Hcl) 2 Mg Capsule 2 Mg PO PRN Cepacol Sore Throat Lozenge (Benzocaine/Menthol) 1 Each Lozenge 1 Each MM PRN Q2HR PRN Suphedrine Pe Combo Pack Cplt (Diphenhydram/Pe/Dm/Acetamin/Gg) 1 Each Tablet.seq 1 Each PO PRN BID PRN Drisdol (Ergocalciferol (Vitamin D2)) 50,000 Unit Capsule 50,000 Unit PO WEEKLY Reguloid Powder (Psyllium Seed (With Sugar)) 369 Gm Powder 369 Gm PO DAILY Omeprazole 20 Mg Capsule.dr 1 Cap PO DAILY Mucinex (Guaifenesin) 600 Mg Tablet.er 1 Tab PO BID Loratadine 10 Mg Tablet 1 Tab PO DAILY Vitals/I & O Vital Sign - Last 24 Hours 11/17/17 11/17/17 11/17/17 11/17/17 14:45 15:00 15:30 16:00 Pulse 64 70 70 69 Resp 18 18 18 18 B/P (MAP) 123/49 (73) 138/56 (83) 135/56 (82) 139/45 (76) Pulse Ox 99 98 99 97 O2 Delivery Room Air Room Air Room Air Room Air 11/17/17 11/17/17 11/17/17 11/17/17 17:00 18:00 19:00 20:00 Pulse 68 72 74 Resp 18 18 16 B/P (MAP) 120/45 (70) 116/55 (75) 115/46 (69) Pulse Ox 97 97 98 O2 Delivery Room Air Room Air Room Air Room Air 11/17/17 11/17/17 11/17/17 11/17/17 20:00 21:00 21:59 22:00 Temp 97.7 97.7 Pulse 80 90 88 Resp 14 15 14 20 B/P (MAP) 119/43 (68) 118/48 (71) 119/47 (71) Pulse Ox 98 97 97 98 O2 Delivery Room Air Room Air Room Air Room Air 11/17/17 11/17/17 11/17/17 11/18/17 23:00 23:03 23:25 00:00 Pulse 90 90 Resp 16 17 B/P (MAP) 119/46 (70) 117/42 Pulse Ox 97 96 O2 Delivery Room Air Room Air Room Air 11/18/17 11/18/17 11/18/17 11/18/17 00:00 01:00 02:00 03:00 Temp 98.0 98.0 Pulse 84 80 84 73 Resp 12 11 10 10 B/P (MAP) 114/45 (68) 108/47 (67) 104/46 (65) 106/44 (64) Pulse Ox 98 97 98 94 O2 Delivery Room Air Room Air Room Air Room Air 11/18/17 11/18/17 11/18/17 11/18/17 04:00 04:00 05:00 06:00 Temp 97.6 97.6 Pulse 74 74 82 Resp 12 10 13 B/P (MAP) 86/42 (57) 104/45 (64) 97/47 (64) Pulse Ox 96 96 97 O2 Delivery Room Air Room Air Room Air Room Air 11/18/17 11/18/17 11/18/17 11/18/17 07:00 09:10 10:00 12:00 Temp 97.6 97.6 Pulse 75 75 61 Resp 10 13 B/P (MAP) 107/64 (78) 107/64 98/50 (66) Pulse Ox 98 65 O2 Delivery Room Air Room Air Room Air 11/18/17 11/18/17 12:00 12:00 Pulse 75 Resp 14 B/P (MAP) 100/54 (69) Pulse Ox 93 O2 Delivery Room Air Room Air Intake and Output 11/17/17 11/17/17 11/18/17 15:00 23:00 07:00 Intake Total 500 ml 310 ml 1233 ml Output Total 0 ml Balance 500 ml 310 ml 1233 ml Nutrition Consultation Dietary Evaluation: Recommendations by RD: Protein supplementation Comments: Continue w/dysphagia I (puree) w/thin liquids Will add Ensure TID Expected Outcomes/Goals: PO intake to meet >75% est needs Malnutrition Findings: Body Fat Depletion (Non Severe: Mod to Severe Weight Status: Emaciated ADA MOLINA III DO Nov 18, 2017 14:38
--- NOTE | 2017-11-18 14:56 | PDOC ---
Provider Note Provider Note Vascular S: Patient resting in bed, patient is non-verbal, makes no response to exhibit she is in pain. O: Awake and alert VSS, afebrile Right groin dressing intact, Palpable DP, Doppler triphasic PT, foot warm, pink. Multiple ulcers including right heel, clean with eschar. A/P: Right leg ischemia, s/p right femoral closure device failure. Patient now has palpable distal pulses. POD #1 Right femoral exploration with removal of closure device, thrombectomy, right femoral endarterectomy with patch angioplasty. Continue local wound care, recommend wound care nurse consult. Will sign off. Follow up with Dr. Jett 12/09/2017 11:10 [facility] Nov 18, 2017 14:56
[2017-11-18] MEDS: CYCLOBENZAPRINE 10 MG TABLET. PO SCH (21:24)
[2017-11-19 03:03] VITALS: BP 92/43
[2017-11-19] MEDS: ACETAMINOPHEN 325 MG TABLET. PO SCH ×3 (06:00→20:57)
[2017-11-19 07:10] VITALS: BP 99/54
[2017-11-19] MEDS: CLOTRIMAZOLE/BETAMETH 1%-0.05% TOPICAL CREAM 15GM TUBE. TP SCH ×2 (09:00→21:00)
[2017-11-19] MEDS: PSYLLIUM HUSK (SUGAR FREE) 1 PKT PACKET PO SCH (09:00)
[2017-11-19] MEDS: DOCUSATE SODIUM 100 MG CAPSULE. PO SCH ×2 (09:20→20:57)
[2017-11-19] MEDS: ENOXAPARIN 30 MG/0.3 ML SYRINGE. SQ SCH (09:20)
[2017-11-19] MEDS: FAMOTIDINE 20 MG TABLET. PO SCH (09:20)
[2017-11-19] MEDS: PANTOPRAZOLE 40 MG TABLET.DR. PO SCH (09:20)
[2017-11-19] MEDS: SENNOSIDES/DOCUSATE 8.6/50MG TABLET. PO SCH ×2 (09:20→20:57)
[2017-11-19] MEDS: ASPIRIN ENTERIC COATED 81 MG TABLET.DR. PO SCH (09:20)
[2017-11-19] MEDS: CETIRIZINE HCL 10 MG TABLET. PO SCH (09:20)
[2017-11-19] MEDS: tiZANidine 4 MG TABLET. PO SCH ×3 (09:23→20:57)
[2017-11-19] MEDS: METOPROLOL TART IMMED RELEASE 25 MG TABLET. PO SCH ×2 (09:27→20:58)
[2017-11-19 11:00] VITALS: BP 114/54
--- NOTE | 2017-11-19 11:50 | PDOC ---
PROGRESS NOTES Chief Complaint Chief Complaint vascular occlusion R femoral artery diabetes mental retardation History of Present Illness History of Present Illness Pt seen and examined resting NAD upon entry, woke up and interacted with us Asked, via hand gestures for something to drink, gave her some of her water to drink Only verbalization was to say goodbye Vitals Vitals Vital Signs Date Time Temp Pulse Resp B/P (MAP) Pulse Ox O2 Delivery O2 Flow Rate FiO2 11/19/17 09:27 84 99/54 11/19/17 07:10 99.0 20 96 Room Air 99.0 Physical Exam General: Alert, Cooperative, No acute distress Heart: Regular rate, Normal S1 Lungs: Clear Abdomen: Normal bowel sounds, Soft, No tenderness Extremities: No cyanosis Skin: No rashes Review of Systems Review of Systems Non verbal No appearance of acute distress Assessment and Plan Assessmemt and Plan Plan: Home meds Wound care Analgesics PRN Labs PT/OT Comment Review of Relevant I have reviewed the following items morteza (where applicable) has been applied. Labs Laboratory Tests Test 11/17/17 15:14 Nasal Screen MRSA (PCR) (.) Medications Current Medications Midazolam HCl (Versed) 2 mg STK-MED ONCE .ROUTE ; Start 11/17/17 at 08:56; Stop 11/17/17 at 08:57; Status DC Fentanyl Citrate (Fentanyl 2ml Vial) 100 mcg STK-MED ONCE .ROUTE ; Start at 08:56; Stop 11/17/17 at 08:57; Status DC Propofol 50 ml @ As Directed STK-MED ONCE IV ; Start 11/17/17 at 08:56; Stop at 08:57; Status DC Propofol 20 ml @ As Directed STK-MED ONCE IV ; Start 11/17/17 at 08:56; Stop at 08:57; Status DC Iodixanol (Visipaque 320) 100 ml STK-MED ONCE .ROUTE ; Start 11/17/17 at 09:29; Stop 11/17/17 at 09:30; Status DC Lidocaine/Sodium Bicarbonate (Buffered Lidocaine 1%) 3 ml STK-MED ONCE .ROUTE ; Start 11/17/17 at 09:30; Stop 11/17/17 at 09:31; Status DC Iodixanol (Visipaque 320) 50 ml STK-MED ONCE .ROUTE ; Start 11/17/17 at 09:30; Stop 11/17/17 at 09:31; Status DC Heparin Sodium/ Sodium Chloride 1,500 ml @ As Directed STK-MED ONCE .ROUTE ; Start 11/17/17 at 09:30; Stop 11/17/17 at 09:31; Status DC Heparin Sodium/ Sodium Chloride (HEPARIN for ARTERIAL LINE FLUSH) 1,000 unit 1X ONCE IART Last administered on 11/17/17at 10:53; Start 11/17/17 at 10:15; Stop 11/17/17 at 10:18; Status DC Heparin Sodium/ Sodium Chloride (HEPARIN for ARTERIAL LINE FLUSH) 1,000 unit 1X ONCE IART Last administered on 11/17/17at 10:53; Start 11/17/17 at 10:15; Stop 11/17/17 at 10:18; Status DC Lidocaine/Sodium Bicarbonate (Buffered Lidocaine 1%) 9 ml 1X ONCE IJ Last administered on 11/17/17at 10:56; Start 11/17/17 at 10:15; Stop 11/17/17 at 10:18 ; Status DC Iodixanol (Visipaque 320) 100 ml 1X ONCE IART Last administered on 11/17/17at 10:52; Start 11/17/17 at 10:15; Stop 11/17/17 at 10:18; Status DC Info (CONTRAST GIVEN -- Rx MONITORING) 1 each PRN DAILY PRN MC SEE COMMENTS; Start 11/17/17 at 10:30; Stop 11/19/17 at 10:29; Status DC Heparin Sodium (Porcine) (Heparin Sodium) 5,000 unit 1X ONCE IV Last administered on 11/17/17at 11:10; Start 11/17/17 at 11:15; Stop 11/17/17 at 11:16 ; Status DC Cefazolin Sodium 1 gm/Sodium Chloride 500 ml @ 500 mls/hr 1X ONCE IRR Last administered on 11/17/17at 12:40; Start 11/17/17 at 12:00; Stop 11/17/17 at 13:00 ; Status DC Gelatin (Gelfoam Size 100) 1 each STK-MED ONCE .ROUTE ; Start 11/17/17 at 10:20 ; Stop 11/17/17 at 11:21; Status DC Iohexol (Omnipaque 300 Mg/ml) 100 ml STK-MED ONCE .ROUTE ; Start 11/17/17 at 10: 20; Stop 11/17/17 at 11:21; Status DC Cellulose (Surgicel Fibrillar 1x2) 1 each STK-MED ONCE .ROUTE Last administered on 11/17/17at 13:31; Start 11/17/17 at 10:20; Stop 11/17/17 at 11:21 ; Status DC Thrombin 20,000 unit STK-MED ONCE TP ; Start 11/17/17 at 10:20; Stop 11/17/17 at 11:21; Status DC Heparin Sodium (Porcine) 5000 unit/Sodium Chloride 505 ml @ 505 mls/hr 1X ONCE IRR Last administered on 11/17/17at 12:40; Start 11/17/17 at 12:00; Stop at 13:00; Status DC Ondansetron HCl (Zofran) 4 mg PRN Q6HRS PRN IV NAUSEA/VOMITING; Start 11/17/17 at 11:30; Stop 11/17/17 at 16:02; Status DC Fentanyl Citrate (Fentanyl 2ml Vial) 25 mcg PRN Q5MIN PRN IV MILD PAIN; Start 11/17/17 at 11:30; Stop 11/17/17 at 16:03; Status DC Fentanyl Citrate (Fentanyl 2ml Vial) 50 mcg PRN Q5MIN PRN IV MODERATE TO SEVERE PAIN; Start 11/17/17 at 11:30; Stop 11/17/17 at 16:03; Status DC Morphine Sulfate (Morphine Sulfate) 1 mg PRN Q10MIN PRN IV SEVERE PAIN; Start 11/17/17 at 11:30; Stop 11/17/17 at 16:03; Status DC Ringer's Solution 1,000 ml @ 30 mls/hr Q24H IV ; Start 11/17/17 at 11:23; Stop 11/17/17 at 16:03; Status DC Lidocaine HCl (Xylocaine-Mpf 1% 2ml Vial) 2 ml PRN 1X PRN ID PRIOR TO IV START ; Start 11/17/17 at 11:30; Stop 11/17/17 at 16:03; Status DC Hydromorphone HCl (Dilaudid) 0.5 mg PRN Q10MIN PRN IV SEV PAIN, Second choice; Start 11/17/17 at 11:30; Stop 11/17/17 at 16:03; Status DC Prochlorperazine Edisylate (Compazine) 5 mg PACU PRN PRN IV NAUSEA, MRX1; Start 11/17/17 at 11:30; Stop 11/17/17 at 16:03; Status DC Cefazolin Sodium 50 ml @ As Directed STK-MED ONCE IV ; Start 11/17/17 at 11:34; Stop 11/17/17 at 12:36; Status DC Ephedrine Sulfate (ePHEDrine PF IN SALINE SYRINGE) 50 mg STK-MED ONCE IV ; Start 11/17/17 at 13:22; Stop 11/17/17 at 13:23; Status DC Acetaminophen (Tylenol) 325 mg PRN QID PRN PO MILD PAIN; Start 11/17/17 at 15: 30; Stop 11/17/17 at 16:05; Status DC Throat Lozenges (Cepacol Sore Throat Lozenge) 1 taylor PRN Q2HR PRN MM sore throat ; Start 11/17/17 at 15:30 Betamethasone/ Clotrimazole (Lotrisone) 1 ana BID TP Last administered on at 09:11; Start 11/17/17 at 21:00 Docusate Sodium (Colace Solution) 50 mg BID PO ; Start 11/17/17 at 21:00; Status Cancel Docusate Sodium (Colace Solution) 100 mg PRN DAILY PRN PO CONSTIPATION; Start 11/17/17 at 15:30 Ergocalciferol (Vitamin D2) 50,000 unit Mo PO ; Start 11/21/17 at 09:00 Guaifenesin (Mucinex) 600 mg BID PO Last administered on 11/19/17at 09:20; Start 11/17/17 at 21:00 Guaifenesin (Robitussin) 100 mg BID PO ; Start 11/17/17 at 21:00; Status UNV Acetaminophen/ Hydrocodone Bitart (Lortab 5/325) 1 tab PRN Q4HRS PRN PO MODERATE PAIN; Start 11/17/17 at 15:30 Lidocaine/ Prilocaine (Emla) 1 ana PRN BID PRN TP MILD PAIN; Start 11/17/17 at 15:30 Metoprolol Tartrate (Lopressor) 12.5 mg BID PO Last administered on 11/19/17at 09:27; Start 11/17/17 at 21:00 Non-Formulary Medication (Acetaminophen (Q-Pap)) 160 mg PRN Q4HRS PRN PO PAIN; Start 11/17/17 at 15:30; Status UNV Cyclobenzaprine HCl (Flexeril) 5 mg QHS PO Last administered on 11/18/17at 21:24 ; Start 11/17/17 at 21:00 Non-Formulary Medication (Hydrocortisone ) 1 ana BID TP ; Start 11/17/17 at 21: 00; Status UNV Hydrocortisone (Cortaid) 1 ana PRN TID PRN TP ITCHING; Start 11/17/17 at 16:00 ; Stop 11/17/17 at 16:28; Status DC Pantoprazole Sodium (Protonix) 40 mg DAILYAC PO Last administered on 11/19/17 09:20; Start 11/18/17 at 07:30 Psyllium Hydrophilic Mucilloid (Metamucil Fiber Packet) 1 pkt DAILY PO Last administered on 11/19/17at 09:00; Start 11/18/17 at 09:00 Famotidine (Pepcid) 20 mg DAILY PO Last administered on 11/19/17 09:20; Start 11/18/17 at 09:00 Tizanidine HCl (Zanaflex) 2 mg TID PO Last administered on 11/19/17 09:23; Start 11/17/17 at 16:00 Cetirizine HCl (ZyrTEC) 10 mg DAILY PO Last administered on 11/19/17at 09:20; Start 11/18/17 at 09:00 Acetaminophen (Tylenol) 650 mg PRN QID PRN PO MILD PAIN; Start 11/17/17 at 15: 45; Stop 11/17/17 at 16:05; Status DC Aspirin (Ecotrin) 81 mg DAILYWBKFT PO Last administered on 11/19/17at 09:20; Start 11/18/17 at 08:00 Oxycodone HCl (Roxicodone) 5 mg PRN Q3HRS PRN PO SEVERE PAIN Last administered on 11/17/17at 20:59; Start 11/17/17 at 16:15 Al Hydroxide/Mg Hydroxide (Mylanta Plus Xs) 30 ml PRN Q3HRS PRN PO HEARTBURN / GAS; Start 11/17/17 at 16:15 Calcium Carbonate/ Glycine (Tums) 500 mg PRN Q3HRS PRN PO INDIGESTION; Start at 16:15 Enoxaparin Sodium (Lovenox 40mg Syringe) 40 mg Q24H SQ ; Start 11/18/17 at 09:00 ; Stop 11/18/17 at 09:00; Status DC Sodium Chloride (Normal Saline Flush) 3 ml QSHIFT PRN IV AFTER MEDS AND BLOOD DRAWS; Start 11/17/17 at 16:15 Sodium Chloride 1,000 ml @ 65 mls/hr [id number] IV Last administered on at 09:14; Start 11/17/17 at 16:15 Acetaminophen (Tylenol) 650 mg PRN Q6HRS PRN PO Headaches, Temp > 101.5F; Start 11/17/17 at 16:15 Acetaminophen (Tylenol) 650 mg Q8HRS PO Last administered on 11/18/17at 21:24; Start 11/17/17 at 22:00 Morphine Sulfate (Morphine Sulfate) 1 mg PRN Q1HR PRN IV PAIN Last administered on 11/17/17at 23:25; Start 11/17/17 at 16:15 Senna/Docusate Sodium (Senna Plus) 1 tab BID PO Last administered on 11/19/17at 09:20; Start 11/17/17 at 21:00 Docusate Sodium (Colace) 100 mg BID PO Last administered on 11/19/17at 09:20; Start 11/17/17 at 21:00 Ondansetron HCl (Zofran) 4 mg PRN Q6HRS PRN IV NAUESA, 1ST CHOICE; Start at 16:15 Naloxone HCl (Narcan) 0.1 mg PRN Q2MIN PRN IV ADMIN; Start 11/17/17 at 16:15 Cefazolin Sodium 1 gm/Dextrose 50 ml @ 100 mls/hr Q6H IV ; Start 11/17/17 at 18 :00; Stop 11/18/17 at 06:29; Status Cancel Cefazolin Sodium (Ancef) 1 gm Q6H IVP Last administered on 11/18/17at 06:00; Start 11/17/17 at 18:00; Stop 11/18/17 at 06:01; Status DC Hydrocortisone (Cortaid) 1 ana PRN TID PRN TP ITCHING; Start 11/17/17 at 16:30 Enoxaparin Sodium (Lovenox 30mg Syringe) 30 mg Q24H SQ Last administered on at 09:20; Start 11/18/17 at 09:00 Active Scripts Active Reported Tizanidine Hcl 4 Mg Tablet 0.5 Tab PO TID Tinactin (Tolnaftate) 30 Gm Cream..g. 30 Gm TP Sudogest (Pseudoephedrine Hcl) 30 Mg Tablet 30 Mg PO Silace (Docusate Sodium) 50 Mg/5 Ml Liquid 50 Mg PO Rulox Suspension (Mag Hydrox/Al Hydrox/Simeth) 355 Ml Oral.susp 355 Ml PO Robafen (Guaifenesin) 100 Mg/5 Ml Liquid 100 Mg PO Meloxicam 7.5 Mg Tablet 1 Tab PO DAILY Lidocaine-Prilocaine Cream (Lidocaine/Prilocaine) 30 Gm Cream..g. 1 Ana TP UD Ibuprofen 400 Mg Tablet 400 Mg PO PRN Q6HRS PRN Ibuprofen 100 Mg/5 Ml Oral.susp 5 Ml PO PRN Q6-8HRS Hydrocortisone 59 Ml Lotion 1 Ana TP BID [place] 5-325 Tablet (Acetaminophen/Hydrocodone Bitart) 1 Each Tablet 1 Tab PO PRN Q4HRS PRN Benadryl (Diphenhydramine Hcl) 25 Mg Capsule 1 Cap PO QHS Cyclobenzaprine Hcl 5 Mg Tablet 1 Tab PO QHS Tylenol (Acetaminophen) 325 Mg Tablet 1-2 Tab PO QID Metoprolol Tartrate 25 Mg Tablet 0.5 Tab PO BID Loratadine 10 Mg Tablet 1 Tab PO DAILY Clotrimazole-Betamethasone Crm (Clotrimazole/Betamethasone Dip) 15 Gm Cream..g. 1 Ana TP BID Reguloid (Psyllium Seed) 426 Gm Powder 426 Gm PO Ranitidine Hcl 150 Mg Capsule 150 Mg PO DAILY Polymyxin B-Tmp Eye Drops (Polymyxin B Sulf/Trimethoprim) 10 Ml Drops 1 Drop EACHEYE TID Melatonin 3 Mg Tablet 5 Mg PO QHS Hydrocortisone (Hydrocortisone Acetate) 28 Gm Oint...g. 28 Gm TP PRN TID PRN Tinactin (Tolnaftate) 30 Gm Cream..g. 30 Gm TP PRN BID PRN Silace (Docusate Sodium) 50 Mg/5 Ml Liquid 100 Mg PO PRN DAILY PRN Q-Pap (Acetaminophen) 160 Mg/5 Ml Liquid 160 Mg PO PRN Q4HRS PRN Loperamide (Loperamide Hcl) 2 Mg Capsule 2 Mg PO PRN Cepacol Sore Throat Lozenge (Benzocaine/Menthol) 1 Each Lozenge 1 Each MM PRN Q2HR PRN Suphedrine Pe Combo Pack Cplt (Diphenhydram/Pe/Dm/Acetamin/Gg) 1 Each Tablet.seq 1 Each PO PRN BID PRN Drisdol (Ergocalciferol (Vitamin D2)) 50,000 Unit Capsule 50,000 Unit PO WEEKLY Reguloid Powder (Psyllium Seed (With Sugar)) 369 Gm Powder 369 Gm PO DAILY Omeprazole 20 Mg Capsule.dr 1 Cap PO DAILY Mucinex (Guaifenesin) 600 Mg Tablet.er 1 Tab PO BID Loratadine 10 Mg Tablet 1 Tab PO DAILY Vitals/I & O Vital Sign - Last 24 Hours 11/18/17 11/18/17 11/18/17 11/18/17 12:00 12:00 12:00 15:00 Temp 97.5 97.5 Pulse 75 100 Resp 14 18 B/P (MAP) 100/54 (69) 162/69 (100) Pulse Ox 93 94 O2 Delivery Room Air Room Air Room Air Room Air 11/18/17 11/18/17 11/18/17 11/18/17 20:00 20:04 21:25 23:00 Temp 98.4 98.9 98.4 98.9 Pulse 105 105 102 Resp 22 20 B/P (MAP) 121/56 (77) 121/56 107/49 (68) Pulse Ox 94 96 O2 Delivery Room Air Room Air Room Air 11/19/17 11/19/17 11/19/17 03:03 07:10 09:27 Temp 98.4 99.0 98.4 99.0 Pulse 59 84 84 Resp 18 20 B/P (MAP) 92/43 (59) 99/54 (69) 99/54 Pulse Ox 91 96 O2 Delivery Room Air Room Air Intake and Output 11/18/17 11/18/17 11/19/17 15:00 23:00 07:00 Intake Total 320 ml 170 ml 100 ml Output Total 3 ml Balance 317 ml 170 ml 100 ml Nutrition Consultation Dietary Evaluation: Recommendations by RD: Protein supplementation Comments: Continue w/dysphagia I (puree) w/thin liquids Will add Ensure TID Expected Outcomes/Goals: PO intake to meet >75% est needs Malnutrition Findings: Body Fat Depletion (Non Severe: Mod to Severe Weight Status: Emaciated ADA MOLINA III DO Nov 19, 2017 11:50
[2017-11-19] MEDS: IV NORMAL SALINE 1000ML BAG 1,000 ML IV SCH (14:27)
[2017-11-19 15:30] VITALS: BP 145/63
[2017-11-19 19:20] VITALS: BP 159/71
[2017-11-19] MEDS: CYCLOBENZAPRINE 10 MG TABLET. PO SCH (20:57)
[2017-11-19 23:41] VITALS: BP 116/52
[2017-11-20 03:40] VITALS: BP 116/49
[2017-11-20 05:29] LABS: BASO % 0 % (0-3); EOS # 0.1 x10^3/uL (0.0-0.7); EOS % 1 % (0-3); HEMATOCRIT 31.9 % (36.0-47.0); LYMPH # 1.2 x10^3/uL (1.0-4.8); LYMPH % 11 % (24-48); MEAN CORPUSCULAR HEMOGLOBIN 34 pg (25-35); MEAN CORPUSCULAR HGB CONC 34 g/dL (31-37); MEAN CORPUSCULAR VOLUME 100 fL (79-100); MONO % 9 % (0-9); NEUT # 8.4 x10^3uL (1.8-7.7); NEUT % 78 % (31-73); PLATELET COUNT 222 x10^3/uL (140-400); RED CELL DISTRIBUTION WIDTH 15.7 % (11.5-14.5); WHITE BLOOD COUNT 10.7 x10^3/uL (4.0-11.0)
[2017-11-20 05:49] LABS: CALCIUM 8.9 mg/dL (8.5-10.1); CREATININE 0.7 mg/dL (0.6-1.0); GFR 82.7; POTASSIUM 4.4 mmol/L (3.5-5.1)
[2017-11-20] MEDS: IV NORMAL SALINE 1000ML BAG 1,000 ML IV SCH ×2 (05:51→21:15)
[2017-11-20] MEDS: ACETAMINOPHEN 325 MG TABLET. PO SCH ×3 (06:00→20:35)
[2017-11-20 07:51] VITALS: BP 95/46
[2017-11-20] MEDS: ASPIRIN ENTERIC COATED 81 MG TABLET.DR. PO SCH (08:57)
[2017-11-20] MEDS: PANTOPRAZOLE 40 MG TABLET.DR. PO SCH (08:57)
[2017-11-20] MEDS: CETIRIZINE HCL 10 MG TABLET. PO SCH (08:57)
[2017-11-20] MEDS: FAMOTIDINE 20 MG TABLET. PO SCH (08:57)
[2017-11-20] MEDS: ENOXAPARIN 30 MG/0.3 ML SYRINGE. SQ SCH (08:57)
[2017-11-20] MEDS: DOCUSATE SODIUM 100 MG CAPSULE. PO SCH ×2 (08:57→20:35)
[2017-11-20] MEDS: tiZANidine 4 MG TABLET. PO SCH ×3 (08:58→20:35)
[2017-11-20] MEDS: SENNOSIDES/DOCUSATE 8.6/50MG TABLET. PO SCH ×2 (08:58→20:36)
[2017-11-20] MEDS: PSYLLIUM HUSK (SUGAR FREE) 1 PKT PACKET PO SCH (08:58)
[2017-11-20] MEDS: CLOTRIMAZOLE/BETAMETH 1%-0.05% TOPICAL CREAM 15GM TUBE. TP SCH ×2 (08:58→21:00)
[2017-11-20] MEDS: METOPROLOL TART IMMED RELEASE 25 MG TABLET. PO SCH ×2 (08:58→20:38)
[2017-11-20 11:00] VITALS: BP 107/51
--- NOTE | 2017-11-20 13:54 | PDOC ---
PROGRESS NOTES Chief Complaint Chief Complaint vascular occlusion R femoral artery diabetes mental retardation History of Present Illness History of Present Illness Pt seen and examined Pt was awake and alert playing with some toys from a friend She was playful and interactive as we examined her Only verbalization was still goodbye LUKE RN Vitals Vitals Vital Signs Date Time Temp Pulse Resp B/P (MAP) Pulse Ox O2 Delivery O2 Flow Rate FiO2 11/20/17 11:00 98.2 92 107/51 (69) 93 Room Air 98.2 11/20/17 07:51 20 Physical Exam General: Alert, Cooperative, No acute distress Heart: Regular rate, Normal S1 Lungs: Clear Abdomen: Normal bowel sounds, Soft, No tenderness Extremities: No cyanosis Skin: No rashes Labs LABS Laboratory Tests Test 11/20/17 05:00 White Blood Count 10.7 x10^3/uL (4.0-11.0) Red Blood Count 3.20 x10^6/uL (3.50-5.40) Hemoglobin 11.0 g/dL (12.0-15.5) Hematocrit 31.9 % (36.0-47.0) Mean Corpuscular Volume 100 fL (79-100) Mean Corpuscular Hemoglobin 34 pg (25-35) Mean Corpuscular Hemoglobin Concent 34 g/dL (31-37) Red Cell Distribution Width 15.7 % (11.5-14.5) Platelet Count 222 x10^3/uL (140-400) Neutrophils (%) (Auto) 78 % (31-73) Lymphocytes (%) (Auto) 11 % (24-48) Monocytes (%) (Auto) 9 % (0-9) Eosinophils (%) (Auto) 1 % (0-3) Basophils (%) (Auto) 0 % (0-3) Neutrophils # (Auto) 8.4 x10^3uL (1.8-7.7) Lymphocytes # (Auto) 1.2 x10^3/uL (1.0-4.8) Monocytes # (Auto) 1.0 x10^3/uL (0.0-1.1) Eosinophils # (Auto) 0.1 x10^3/uL (0.0-0.7) Basophils # (Auto) 0.0 x10^3/uL (0.0-0.2) Sodium Level 145 mmol/L (136-145) Potassium Level 4.4 mmol/L (3.5-5.1) Chloride Level 110 mmol/L (98-107) Carbon Dioxide Level 31 mmol/L (21-32) Anion Gap 4 (6-14) Blood Urea Nitrogen 22 mg/dL (7-20) Creatinine 0.7 mg/dL (0.6-1.0) Estimated GFR (Cockcroft-Gault) 82.7 Glucose Level 123 mg/dL (70-99) Calcium Level 8.9 mg/dL (8.5-10.1) Review of Systems Review of Systems CO thirst non-verbal Assessment and Plan Assessmemt and Plan vascular occlusion R femoral artery diabetes mental retardation Plan: Labs PT/OT eval home meds SS consult for DC disposition Comment Review of Relevant I have reviewed the following items morteza (where applicable) has been applied. Labs Laboratory Tests Test 11/20/17 05:00 White Blood Count 10.7 x10^3/uL (4.0-11.0) Red Blood Count 3.20 x10^6/uL (3.50-5.40) Hemoglobin 11.0 g/dL (12.0-15.5) Hematocrit 31.9 % (36.0-47.0) Mean Corpuscular Volume 100 fL (79-100) Mean Corpuscular Hemoglobin 34 pg (25-35) Mean Corpuscular Hemoglobin Concent 34 g/dL (31-37) Red Cell Distribution Width 15.7 % (11.5-14.5) Platelet Count 222 x10^3/uL (140-400) Neutrophils (%) (Auto) 78 % (31-73) Lymphocytes (%) (Auto) 11 % (24-48) Monocytes (%) (Auto) 9 % (0-9) Eosinophils (%) (Auto) 1 % (0-3) Basophils (%) (Auto) 0 % (0-3) Neutrophils # (Auto) 8.4 x10^3uL (1.8-7.7) Lymphocytes # (Auto) 1.2 x10^3/uL (1.0-4.8) Monocytes # (Auto) 1.0 x10^3/uL (0.0-1.1) Eosinophils # (Auto) 0.1 x10^3/uL (0.0-0.7) Basophils # (Auto) 0.0 x10^3/uL (0.0-0.2) Sodium Level 145 mmol/L (136-145) Potassium Level 4.4 mmol/L (3.5-5.1) Chloride Level 110 mmol/L (98-107) Carbon Dioxide Level 31 mmol/L (21-32) Anion Gap 4 (6-14) Blood Urea Nitrogen 22 mg/dL (7-20) Creatinine 0.7 mg/dL (0.6-1.0) Estimated GFR (Cockcroft-Gault) 82.7 Glucose Level 123 mg/dL (70-99) Calcium Level 8.9 mg/dL (8.5-10.1) Laboratory Tests Test 11/20/17 05:00 White Blood Count 10.7 x10^3/uL (4.0-11.0) Red Blood Count 3.20 x10^6/uL (3.50-5.40) Hemoglobin 11.0 g/dL (12.0-15.5) Hematocrit 31.9 % (36.0-47.0) Mean Corpuscular Volume 100 fL (79-100) Mean Corpuscular Hemoglobin 34 pg (25-35) Mean Corpuscular Hemoglobin Concent 34 g/dL (31-37) Red Cell Distribution Width 15.7 % (11.5-14.5) Platelet Count 222 x10^3/uL (140-400) Neutrophils (%) (Auto) 78 % (31-73) Lymphocytes (%) (Auto) 11 % (24-48) Monocytes (%) (Auto) 9 % (0-9) Eosinophils (%) (Auto) 1 % (0-3) Basophils (%) (Auto) 0 % (0-3) Neutrophils # (Auto) 8.4 x10^3uL (1.8-7.7) Lymphocytes # (Auto) 1.2 x10^3/uL (1.0-4.8) Monocytes # (Auto) 1.0 x10^3/uL (0.0-1.1) Eosinophils # (Auto) 0.1 x10^3/uL (0.0-0.7) Basophils # (Auto) 0.0 x10^3/uL (0.0-0.2) Sodium Level 145 mmol/L (136-145) Potassium Level 4.4 mmol/L (3.5-5.1) Chloride Level 110 mmol/L (98-107) Carbon Dioxide Level 31 mmol/L (21-32) Anion Gap 4 (6-14) Blood Urea Nitrogen 22 mg/dL (7-20) Creatinine 0.7 mg/dL (0.6-1.0) Estimated GFR (Cockcroft-Gault) 82.7 Glucose Level 123 mg/dL (70-99) Calcium Level 8.9 mg/dL (8.5-10.1) Medications Current Medications Midazolam HCl (Versed) 2 mg STK-MED ONCE .ROUTE ; Start 11/17/17 at 08:56; Stop 11/17/17 at 08:57; Status DC Fentanyl Citrate (Fentanyl 2ml Vial) 100 mcg STK-MED ONCE .ROUTE ; Start at 08:56; Stop 11/17/17 at 08:57; Status DC Propofol 50 ml @ As Directed STK-MED ONCE IV ; Start 11/17/17 at 08:56; Stop at 08:57; Status DC Propofol 20 ml @ As Directed STK-MED ONCE IV ; Start 11/17/17 at 08:56; Stop at 08:57; Status DC Iodixanol (Visipaque 320) 100 ml STK-MED ONCE .ROUTE ; Start 11/17/17 at 09:29; Stop 11/17/17 at 09:30; Status DC Lidocaine/Sodium Bicarbonate (Buffered Lidocaine 1%) 3 ml STK-MED ONCE .ROUTE ; Start 11/17/17 at 09:30; Stop 11/17/17 at 09:31; Status DC Iodixanol (Visipaque 320) 50 ml STK-MED ONCE .ROUTE ; Start 11/17/17 at 09:30; Stop 11/17/17 at 09:31; Status DC Heparin Sodium/ Sodium Chloride 1,500 ml @ As Directed STK-MED ONCE .ROUTE ; Start 11/17/17 at 09:30; Stop 11/17/17 at 09:31; Status DC Heparin Sodium/ Sodium Chloride (HEPARIN for ARTERIAL LINE FLUSH) 1,000 unit 1X ONCE IART Last administered on 11/17/17at 10:53; Start 11/17/17 at 10:15; Stop 11/17/17 at 10:18; Status DC Heparin Sodium/ Sodium Chloride (HEPARIN for ARTERIAL LINE FLUSH) 1,000 unit 1X ONCE IART Last administered on 11/17/17at 10:53; Start 11/17/17 at 10:15; Stop 11/17/17 at 10:18; Status DC Lidocaine/Sodium Bicarbonate (Buffered Lidocaine 1%) 9 ml 1X ONCE IJ Last administered on 11/17/17at 10:56; Start 11/17/17 at 10:15; Stop 11/17/17 at 10:18 ; Status DC Iodixanol (Visipaque 320) 100 ml 1X ONCE IART Last administered on 11/17/17at 10:52; Start 11/17/17 at 10:15; Stop 11/17/17 at 10:18; Status DC Info (CONTRAST GIVEN -- Rx MONITORING) 1 each PRN DAILY PRN MC SEE COMMENTS; Start 11/17/17 at 10:30; Stop 11/19/17 at 10:29; Status DC Heparin Sodium (Porcine) (Heparin Sodium) 5,000 unit 1X ONCE IV Last administered on 11/17/17at 11:10; Start 11/17/17 at 11:15; Stop 11/17/17 at 11:16 ; Status DC Cefazolin Sodium 1 gm/Sodium Chloride 500 ml @ 500 mls/hr 1X ONCE IRR Last administered on 11/17/17at 12:40; Start 11/17/17 at 12:00; Stop 11/17/17 at 13:00 ; Status DC Gelatin (Gelfoam Size 100) 1 each STK-MED ONCE .ROUTE ; Start 11/17/17 at 10:20 ; Stop 11/17/17 at 11:21; Status DC Iohexol (Omnipaque 300 Mg/ml) 100 ml STK-MED ONCE .ROUTE ; Start 11/17/17 at 10: 20; Stop 11/17/17 at 11:21; Status DC Cellulose (Surgicel Fibrillar 1x2) 1 each STK-MED ONCE .ROUTE Last administered on 11/17/17at 13:31; Start 11/17/17 at 10:20; Stop 11/17/17 at 11:21 ; Status DC Thrombin 20,000 unit STK-MED ONCE TP ; Start 11/17/17 at 10:20; Stop 11/17/17 at 11:21; Status DC Heparin Sodium (Porcine) 5000 unit/Sodium Chloride 505 ml @ 505 mls/hr 1X ONCE IRR Last administered on 11/17/17at 12:40; Start 11/17/17 at 12:00; Stop at 13:00; Status DC Ondansetron HCl (Zofran) 4 mg PRN Q6HRS PRN IV NAUSEA/VOMITING; Start 11/17/17 at 11:30; Stop 11/17/17 at 16:02; Status DC Fentanyl Citrate (Fentanyl 2ml Vial) 25 mcg PRN Q5MIN PRN IV MILD PAIN; Start 11/17/17 at 11:30; Stop 11/17/17 at 16:03; Status DC Fentanyl Citrate (Fentanyl 2ml Vial) 50 mcg PRN Q5MIN PRN IV MODERATE TO SEVERE PAIN; Start 11/17/17 at 11:30; Stop 11/17/17 at 16:03; Status DC Morphine Sulfate (Morphine Sulfate) 1 mg PRN Q10MIN PRN IV SEVERE PAIN; Start 11/17/17 at 11:30; Stop 11/17/17 at 16:03; Status DC Ringer's Solution 1,000 ml @ 30 mls/hr Q24H IV ; Start 11/17/17 at 11:23; Stop 11/17/17 at 16:03; Status DC Lidocaine HCl (Xylocaine-Mpf 1% 2ml Vial) 2 ml PRN 1X PRN ID PRIOR TO IV START ; Start 11/17/17 at 11:30; Stop 11/17/17 at 16:03; Status DC Hydromorphone HCl (Dilaudid) 0.5 mg PRN Q10MIN PRN IV SEV PAIN, Second choice; Start 11/17/17 at 11:30; Stop 11/17/17 at 16:03; Status DC Prochlorperazine Edisylate (Compazine) 5 mg PACU PRN PRN IV NAUSEA, MRX1; Start 11/17/17 at 11:30; Stop 11/17/17 at 16:03; Status DC Cefazolin Sodium 50 ml @ As Directed STK-MED ONCE IV ; Start 11/17/17 at 11:34; Stop 11/17/17 at 12:36; Status DC Ephedrine Sulfate (ePHEDrine PF IN SALINE SYRINGE) 50 mg STK-MED ONCE IV ; Start 11/17/17 at 13:22; Stop 11/17/17 at 13:23; Status DC Acetaminophen (Tylenol) 325 mg PRN QID PRN PO MILD PAIN; Start 11/17/17 at 15: 30; Stop 11/17/17 at 16:05; Status DC Throat Lozenges (Cepacol Sore Throat Lozenge) 1 taylor PRN Q2HR PRN MM sore throat ; Start 11/17/17 at 15:30 Betamethasone/ Clotrimazole (Lotrisone) 1 rayna BID TP Last administered on at 08:58; Start 11/17/17 at 21:00 Docusate Sodium (Colace Solution) 50 mg BID PO ; Start 11/17/17 at 21:00; Status Cancel Docusate Sodium (Colace Solution) 100 mg PRN DAILY PRN PO CONSTIPATION; Start 11/17/17 at 15:30 Ergocalciferol (Vitamin D2) 50,000 unit Mo PO ; Start 11/21/17 at 09:00 Guaifenesin (Mucinex) 600 mg BID PO Last administered on 11/20/17at 08:57; Start 11/17/17 at 21:00 Guaifenesin (Robitussin) 100 mg BID PO ; Start 11/17/17 at 21:00; Status UNV Acetaminophen/ Hydrocodone Bitart (Lortab 5/325) 1 tab PRN Q4HRS PRN PO MODERATE PAIN; Start 11/17/17 at 15:30 Lidocaine/ Prilocaine (Emla) 1 rayna PRN BID PRN TP MILD PAIN; Start 11/17/17 at 15:30 Metoprolol Tartrate (Lopressor) 12.5 mg BID PO Last administered on 11/20/17at 08:58; Start 11/17/17 at 21:00 Non-Formulary Medication (Acetaminophen (Q-Pap)) 160 mg PRN Q4HRS PRN PO PAIN; Start 11/17/17 at 15:30; Status UNV Cyclobenzaprine HCl (Flexeril) 5 mg QHS PO Last administered on 11/19/17at 20:57 ; Start 11/17/17 at 21:00 Non-Formulary Medication (Hydrocortisone ) 1 rayna BID TP ; Start 11/17/17 at 21: 00; Status UNV Hydrocortisone (Cortaid) 1 rayna PRN TID PRN TP ITCHING; Start 11/17/17 at 16:00 ; Stop 11/17/17 at 16:28; Status DC Pantoprazole Sodium (Protonix) 40 mg DAILYAC PO Last administered on 11/20/17at 08:57; Start 11/18/17 at 07:30 Psyllium Hydrophilic Mucilloid (Metamucil Fiber Packet) 1 pkt DAILY PO Last administered on 11/20/17at 08:58; Start 11/18/17 at 09:00 Famotidine (Pepcid) 20 mg DAILY PO Last administered on 11/20/17at 08:57; Start 11/18/17 at 09:00 Tizanidine HCl (Zanaflex) 2 mg TID PO Last administered on 11/20/17at 08:58; Start 11/17/17 at 16:00 Cetirizine HCl (ZyrTEC) 10 mg DAILY PO Last administered on 11/20/17at 08:57; Start 11/18/17 at 09:00 Acetaminophen (Tylenol) 650 mg PRN QID PRN PO MILD PAIN; Start 11/17/17 at 15: 45; Stop 11/17/17 at 16:05; Status DC Aspirin (Ecotrin) 81 mg DAILYWBKFT PO Last administered on 11/20/17at 08:57; Start 11/18/17 at 08:00 Oxycodone HCl (Roxicodone) 5 mg PRN Q3HRS PRN PO SEVERE PAIN Last administered on 11/17/17at 20:59; Start 11/17/17 at 16:15 Al Hydroxide/Mg Hydroxide (Mylanta Plus Xs) 30 ml PRN Q3HRS PRN PO HEARTBURN / GAS; Start 11/17/17 at 16:15 Calcium Carbonate/ Glycine (Tums) 500 mg PRN Q3HRS PRN PO INDIGESTION; Start at 16:15 Enoxaparin Sodium (Lovenox 40mg Syringe) 40 mg Q24H SQ ; Start 11/18/17 at 09:00 ; Stop 11/18/17 at 09:00; Status DC Sodium Chloride (Normal Saline Flush) 3 ml QSHIFT PRN IV AFTER MEDS AND BLOOD DRAWS; Start 11/17/17 at 16:15 Sodium Chloride 1,000 ml @ 65 mls/hr [id number] IV Last administered on at 09:14; Start 11/17/17 at 16:15 Acetaminophen (Tylenol) 650 mg PRN Q6HRS PRN PO Headaches, Temp > 101.5F; Start 11/17/17 at 16:15 Acetaminophen (Tylenol) 650 mg Q8HRS PO Last administered on 11/19/17at 20:57; Start 11/17/17 at 22:00 Morphine Sulfate (Morphine Sulfate) 1 mg PRN Q1HR PRN IV PAIN Last administered on 11/17/17at 23:25; Start 11/17/17 at 16:15 Senna/Docusate Sodium (Senna Plus) 1 tab BID PO Last administered on 11/20/17at 08:58; Start 11/17/17 at 21:00 Docusate Sodium (Colace) 100 mg BID PO Last administered on 11/20/17at 08:57; Start 11/17/17 at 21:00 Ondansetron HCl (Zofran) 4 mg PRN Q6HRS PRN IV NAUESA, 1ST CHOICE; Start at 16:15 Naloxone HCl (Narcan) 0.1 mg PRN Q2MIN PRN IV ADMIN; Start 11/17/17 at 16:15 Cefazolin Sodium 1 gm/Dextrose 50 ml @ 100 mls/hr Q6H IV ; Start 11/17/17 at 18 :00; Stop 11/18/17 at 06:29; Status Cancel Cefazolin Sodium (Ancef) 1 gm Q6H IVP Last administered on 11/18/17at 06:00; Start 11/17/17 at 18:00; Stop 11/18/17 at 06:01; Status DC Hydrocortisone (Cortaid) 1 rayna PRN TID PRN TP ITCHING Last administered on 11/19at 20:58; Start 11/17/17 at 16:30 Enoxaparin Sodium (Lovenox 30mg Syringe) 30 mg Q24H SQ Last administered on at 08:57; Start 11/18/17 at 09:00 Active Scripts Active Reported Tizanidine Hcl 4 Mg Tablet 0.5 Tab PO TID Tinactin (Tolnaftate) 30 Gm Cream..g. 30 Gm TP Sudogest (Pseudoephedrine Hcl) 30 Mg Tablet 30 Mg PO Silace (Docusate Sodium) 50 Mg/5 Ml Liquid 50 Mg PO Rulox Suspension (Mag Hydrox/Al Hydrox/Simeth) 355 Ml Oral.susp 355 Ml PO Robafen (Guaifenesin) 100 Mg/5 Ml Liquid 100 Mg PO Meloxicam 7.5 Mg Tablet 1 Tab PO DAILY Lidocaine-Prilocaine Cream (Lidocaine/Prilocaine) 30 Gm Cream..g. 1 Rayna TP UD Ibuprofen 400 Mg Tablet 400 Mg PO PRN Q6HRS PRN Ibuprofen 100 Mg/5 Ml Oral.susp 5 Ml PO PRN Q6-8HRS Hydrocortisone 59 Ml Lotion 1 Rayna TP BID Clifton 5-325 Tablet (Acetaminophen/Hydrocodone Bitart) 1 Each Tablet 1 Tab PO PRN Q4HRS PRN Benadryl (Diphenhydramine Hcl) 25 Mg Capsule 1 Cap PO QHS Cyclobenzaprine Hcl 5 Mg Tablet 1 Tab PO QHS Tylenol (Acetaminophen) 325 Mg Tablet 1-2 Tab PO QID Metoprolol Tartrate 25 Mg Tablet 0.5 Tab PO BID Loratadine 10 Mg Tablet 1 Tab PO DAILY Clotrimazole-Betamethasone Crm (Clotrimazole/Betamethasone Dip) 15 Gm Cream..g. 1 Rayna TP BID Reguloid (Psyllium Seed) 426 Gm Powder 426 Gm PO Ranitidine Hcl 150 Mg Capsule 150 Mg PO DAILY Polymyxin B-Tmp Eye Drops (Polymyxin B Sulf/Trimethoprim) 10 Ml Drops 1 Drop EACHEYE TID Melatonin 3 Mg Tablet 5 Mg PO QHS Hydrocortisone (Hydrocortisone Acetate) 28 Gm Oint...g. 28 Gm TP PRN TID PRN Tinactin (Tolnaftate) 30 Gm Cream..g. 30 Gm TP PRN BID PRN Silace (Docusate Sodium) 50 Mg/5 Ml Liquid 100 Mg PO PRN DAILY PRN Q-Pap (Acetaminophen) 160 Mg/5 Ml Liquid 160 Mg PO PRN Q4HRS PRN Loperamide (Loperamide Hcl) 2 Mg Capsule 2 Mg PO PRN Cepacol Sore Throat Lozenge (Benzocaine/Menthol) 1 Each Lozenge 1 Each MM PRN Q2HR PRN Suphedrine Pe Combo Pack Cplt (Diphenhydram/Pe/Dm/Acetamin/Gg) 1 Each Tablet.seq 1 Each PO PRN BID PRN Drisdol (Ergocalciferol (Vitamin D2)) 50,000 Unit Capsule 50,000 Unit PO WEEKLY Reguloid Powder (Psyllium Seed (With Sugar)) 369 Gm Powder 369 Gm PO DAILY Omeprazole 20 Mg Capsule.dr 1 Cap PO DAILY Mucinex (Guaifenesin) 600 Mg Tablet.er 1 Tab PO BID Loratadine 10 Mg Tablet 1 Tab PO DAILY Vitals/I & O Vital Sign - Last 24 Hours 11/19/17 11/19/17 11/19/17 11/19/17 15:30 19:20 20:07 20:58 Temp 99.0 98.3 99.0 98.3 Pulse 87 102 102 Resp 18 22 B/P (MAP) 145/63 (90) 159/71 (100) 159/71 Pulse Ox 93 93 O2 Delivery Room Air Room Air Room Air 11/19/17 11/20/17 11/20/17 11/20/17 23:41 03:40 07:51 08:58 Temp 98.1 98.0 98.0 98.1 98.0 98.0 Pulse 101 98 90 90 Resp 22 21 20 B/P (MAP) 116/52 (73) 116/49 (71) 95/46 (62) 95/46 Pulse Ox 94 93 93 O2 Delivery Room Air Room Air Room Air 11/20/17 11:00 Temp 98.2 98.2 Pulse 92 B/P (MAP) 107/51 (69) Pulse Ox 93 O2 Delivery Room Air Intake and Output 11/19/17 11/19/17 11/20/17 15:00 23:00 07:00 Intake Total 840 ml 500 ml 500 ml Balance 840 ml 500 ml 500 ml Nutrition Consultation Dietary Evaluation: Recommendations by RD: Protein supplementation Comments: Continue w/dysphagia I (puree) w/thin liquids Will add Ensure TID Expected Outcomes/Goals: PO intake to meet >75% est needs Malnutrition Findings: Body Fat Depletion (Non Severe: Mod to Severe Weight Status: Emaciated ADA MOLINA III DO Nov 20, 2017 13:54
[2017-11-20 15:00] VITALS: BP 122/57
[2017-11-20 19:15] VITALS: BP 128/73
[2017-11-20] MEDS: CYCLOBENZAPRINE 10 MG TABLET. PO SCH (20:36)
[2017-11-20 23:10] VITALS: BP 143/57
[2017-11-21 03:32] VITALS: BP 112/53
[2017-11-21 06:25] LABS: BASO % 0 % (0-3); EOS # 0.2 x10^3/uL (0.0-0.7); EOS % 2 % (0-3); HEMATOCRIT 29.4 % (36.0-47.0); HEMOGLOBIN 9.9 g/dL (12.0-15.5); LYMPH % 10 % (24-48); MEAN CORPUSCULAR HEMOGLOBIN 34 pg (25-35); MEAN CORPUSCULAR HGB CONC 34 g/dL (31-37); MEAN CORPUSCULAR VOLUME 99 fL (79-100); MONO # 0.8 x10^3/uL (0.0-1.1); MONO % 8 % (0-9); NEUT # 7.8 x10^3uL (1.8-7.7); NEUT % 79 % (31-73); PLATELET COUNT 195 x10^3/uL (140-400); RED BLOOD COUNT 2.96 x10^6/uL (3.50-5.40); RED CELL DISTRIBUTION WIDTH 15.8 % (11.5-14.5); WHITE BLOOD COUNT 9.9 x10^3/uL (4.0-11.0)
[2017-11-21 06:46] LABS: CALCIUM 8.5 mg/dL (8.5-10.1); CREATININE 0.7 mg/dL (0.6-1.0); GFR 82.7; POTASSIUM 4.6 mmol/L (3.5-5.1)
[2017-11-21] MEDS: PANTOPRAZOLE 40 MG TABLET.DR. PO SCH (08:43)
[2017-11-21] MEDS: ACETAMINOPHEN 325 MG TABLET. PO SCH (08:43)
[2017-11-21] MEDS: SENNOSIDES/DOCUSATE 8.6/50MG TABLET. PO SCH (08:44)
[2017-11-21] MEDS: CETIRIZINE HCL 10 MG TABLET. PO SCH (08:44)
[2017-11-21] MEDS: FAMOTIDINE 20 MG TABLET. PO SCH (08:44)
[2017-11-21] MEDS: DOCUSATE SODIUM 100 MG CAPSULE. PO SCH (08:44)
[2017-11-21] MEDS: PSYLLIUM HUSK (SUGAR FREE) 1 PKT PACKET PO SCH (08:44)
[2017-11-21] MEDS: ASPIRIN ENTERIC COATED 81 MG TABLET.DR. PO SCH (08:44)
[2017-11-21] MEDS: tiZANidine 4 MG TABLET. PO SCH (08:45)
[2017-11-21] MEDS: ENOXAPARIN 30 MG/0.3 ML SYRINGE. SQ SCH (08:45)
[2017-11-21] MEDS: CLOTRIMAZOLE/BETAMETH 1%-0.05% TOPICAL CREAM 15GM TUBE. TP SCH (08:46)
[2017-11-21] MEDS: METOPROLOL TART IMMED RELEASE 25 MG TABLET. PO SCH (08:57)
[2017-11-21] MEDS ORDERED: ERGOCALCIFEROL (VITAMIN D2) 50,000 UNIT CAPSULE. PO SCH (09:00)
[2017-11-21] MEDS ORDERED: ASPI-612 PO (10:36)
[2017-11-21 11:55] VITALS: BP 97/47
[2017-11-21] MEDS: IV NORMAL SALINE 1000ML BAG 1,000 ML IV SCH (12:39)
--- NOTE | 2017-11-21 14:24 | PDOC3 ---
Discharge Summary [facility] Date of Admission: Nov 17, 2017 Discharge Date: Nov 21, 2017 Admitting Diagnosis vascular occlusion R femoral artery s/p endarterectomy diabetes mental retardation from nursing home CONSULTS vascular Brief Hospital Course Ms. Tiwari is a 72 old F, from nursing home with mental retardation. Pt has been having rt lower ext ischemia s/p rt femeral endarterectomy. pt not answer questions to me today when i saw her, just cont eating and makes the tray messy which is likely her baseline. dc back home. wound care. dc time 35min. General: Alert, Cooperative, No acute distress Heart: Regular rate, Normal S1 Lungs: Clear Abdomen: Normal bowel sounds, Soft, No tenderness Extremities: No cyanosis. + pedal pulse. clean wound. Skin: No rashes Patient History: Unknown Disposition nursing home CONDITION AT DISCHARGE: Improved Scheduled Acetaminophen (Tylenol), 1-2 TAB PO QID, (Reported) Aspirin (Aspirin Ec), 81 MG PO DAILYWBKFT Clotrimazole/Betamethasone Dip (Clotrimazole-Betamethasone Crm), 1 RUBIO TP BID, ( Reported) Cyclobenzaprine Hcl (Cyclobenzaprine Hcl), 1 TAB PO QHS, (Reported) Diphenhydramine Hcl (Benadryl), 1 CAP PO QHS, (Reported) Ergocalciferol (Vitamin D2) (Drisdol), 50,000 UNIT PO WEEKLY, (Reported) Guaifenesin (Mucinex), 1 TAB PO BID, (Reported) Lidocaine/Prilocaine (Lidocaine-Prilocaine Cream), 1 RUBIO TP UD, (Reported) Loratadine (Loratadine), 1 TAB PO DAILY, (Reported) Melatonin (Melatonin), 5 MG PO QHS, (Reported) Meloxicam (Meloxicam), 1 TAB PO DAILY, (Reported) Metoprolol Tartrate (Metoprolol Tartrate), 0.5 TAB PO BID, (Reported) Omeprazole (Omeprazole), 1 CAP PO DAILY, (Reported) Polymyxin B Sulf/Trimethoprim (Polymyxin B-Tmp Eye Drops), 1 DROP EACHEYE TID, ( Reported) Psyllium Seed (With Sugar) (Reguloid Powder), 369 GM PO DAILY, (Reported) Tizanidine Hcl (Tizanidine Hcl), 0.5 TAB PO TID, (Reported) Scheduled PRN Benzocaine/Menthol (Cepacol Sore Throat Lozenge), 1 EACH MM PRN Q2HR PRN for sore throat, (Reported) Diphenhydram/Pe/Dm/Acetamin/Gg (Suphedrine Pe Combo Pack Cplt), 1 EACH PO PRN BID PRN for ITCHING, (Reported) Docusate Sodium (Silace), 100 MG PO PRN DAILY PRN for CONSTIPATION, (Reported) Hydrocodone/Apap 5-325 (Dawes 5-325 Tablet), 1 TAB PO PRN Q4HRS PRN for PAIN, ( Reported) Hydrocortisone Acetate (Hydrocortisone), 28 GM TP PRN TID PRN for ITCHING, ( Reported) Ibuprofen (Ibuprofen), 400 MG PO PRN Q6HRS PRN for INFLAMMATION, (Reported) Loperamide Hcl (Loperamide), 2 MG PO for DIARRHEA, (Reported) Miscellaneous Medications Docusate Sodium (Silace), 50 MG PO, (Reported) Mag Hydrox/Al Hydrox/Simeth (Rulox Suspension), 355 ML PO, (Reported) Psyllium Seed (Reguloid), 426 GM PO, (Reported) Tolnaftate (Tinactin), 30 GM TP, (Reported) Discontinued Medications Acetaminophen (Q-Pap), 160 MG PO PRN Q4HRS PRN for PAIN, (Reported) Guaifenesin (Robafen), 100 MG PO, (Reported) Hydrocortisone (Hydrocortisone), 1 RUBIO TP BID, (Reported) Ibuprofen (Ibuprofen), 5 ML PO PRN Q6-8HRS, (Reported) Loratadine (Loratadine), 1 TAB PO DAILY, (Reported) Pseudoephedrine Hcl (Sudogest), 30 MG PO, (Reported) Ranitidine Hcl (Ranitidine Hcl), 150 MG PO DAILY, (Reported) Tolnaftate (Tinactin), 30 GM TP PRN BID PRN for athletes foot, (Reported) TINO BUTLER MD Nov 21, 2017 14:24
== END 2017-11-21 13:48 | disposition home health service (06) | DRG 252 ==
LOC: SURG 08:01 → 1 WEST ICU 14:21 → 2 NORTH 11-18 14:18
PROVIDERS: ADMIT Family Medicine; ATTEND Family Medicine
PROC: 04UK0KZ Supplement Right Femoral Artery with Nonautologous Tissue Substitute, Open Approach (ICD-10-PCS; 2017-11-17)
PROC: B41D1ZZ Fluoroscopy of Aorta and Bilateral Lower Extremity Arteries using Low Osmolar Contrast (ICD-10-PCS; 2017-11-17)
PROC: B41C1ZZ Fluoroscopy of Pelvic Arteries using Low Osmolar Contrast (ICD-10-PCS; 2017-11-17)
PROC: 04PY0YZ Removal of Other Device from Lower Artery, Open Approach (ICD-10-PCS; 2017-11-17)
PROC: 04CK0ZZ Extirpation of Matter from Right Femoral Artery, Open Approach (ICD-10-PCS; principal; 2017-11-17 09:30)
DX: E11.51 Type 2 diabetes mellitus with diabetic peripheral angiopathy without gangrene (principal); E43 Unspecified severe protein-calorie malnutrition; Z68.1 Body mass index [BMI] 19.9 or less, adult; I70.201 Unspecified atherosclerosis of native arteries of extremities, right leg; F79 Unspecified intellectual disabilities; G80.9 Cerebral palsy, unspecified
CPT/HCPCS: 36246; 36415; 75625; 75716; 76937; 80048; 85025; 85610; 86850; 86900; 86901; A7015; C1757; C1760; C1769; C1892; C1894; G0269; J0690; J1644; J1650; J2250; J2270; J2704; J3010; J7030; J7040; J7120; Q9967

== ENCOUNTER → 2017-11-24 | Outpatient (CLI) | payer MEDICARE, OTHER ==
[2017-11-21 11:55] VITALS: BP 97/47
[~2017-11-24] MED LIST changes: +ACET325T9 PO; +ASPI-612 PO; +CLOT15CR5 TP; +CYCL5TAB PO; +DIPH25CA58 PO; +HYDR-971 PO; +HYDR59LO TP; +IBUP-1027 PO; +LIDO30CR TP; +METO25TA4 PO; +POLY10DR3 EACHEYE; +TIZA4TAB PO; +[UNRECOGNIZED DRUG - CODE] PO
== END | disposition home or self-care (01) ==
LOC: PMGWOUND 09:33
PROVIDERS: ATTEND Emergency Medicine Undersea and Hyperbaric Medicine
DX: S81.811D Laceration without foreign body, right lower leg, subsequent encounter (principal); S91.311D Laceration without foreign body, right foot, subsequent encounter; E11.51 Type 2 diabetes mellitus with diabetic peripheral angiopathy without gangrene; K21.9 Gastro-esophageal reflux disease without esophagitis; I48.91 Unspecified atrial fibrillation; G80.9 Cerebral palsy, unspecified; I73.9 Peripheral vascular disease, unspecified; X83.8XXD Intentional self-harm by other specified means, subsequent encounter
CPT/HCPCS: 99214; G0463

== ENCOUNTER → 2017-12-01 | Outpatient (CLI) | payer MEDICARE, OTHER ==
[2017-11-21 11:55] VITALS: BP 97/47
--- NOTE | 2017-12-02 09:47 | RAD ---
Right groin ultrasound, 12/01/2017: History: Check patency following bovine patch placement Duplex evaluation of the right groin was performed. The right common femoral artery artery appears widely patent demonstrating a biphasic Doppler waveform. The superficial femoral artery in the thigh is also widely patent with a biphasic Doppler waveform. The common femoral vein is also patent. Incidental note is made of a small 1.6 x 1.4 x 0.7 cm fluid collection along the anterior aspect of the femoral vessels compatible with a small seroma/hematoma. There is no evidence of pseudoaneurysm. IMPRESSION: 1. Patent femoral artery and vein at the right groin level. 2. Small postoperative fluid collection.
== END | disposition home or self-care (01) ==
LOC: PMGWOUND 11:32
PROVIDERS: ATTEND Emergency Medicine Undersea and Hyperbaric Medicine
DX: S81.811D Laceration without foreign body, right lower leg, subsequent encounter (principal); S90.521A Blister (nonthermal), right ankle, initial encounter; I70.201 Unspecified atherosclerosis of native arteries of extremities, right leg; E11.51 Type 2 diabetes mellitus with diabetic peripheral angiopathy without gangrene; K21.9 Gastro-esophageal reflux disease without esophagitis; I48.91 Unspecified atrial fibrillation; I42.9 Cardiomyopathy, unspecified; E55.9 Vitamin D deficiency, unspecified; G80.9 Cerebral palsy, unspecified; E66.8 Other obesity; Z68.1 Body mass index [BMI] 19.9 or less, adult; X58.XXXA Exposure to other specified factors, initial encounter; Y93.89 Activity, other specified; Y92.89 Other specified places as the place of occurrence of the external cause; Y99.8 Other external cause status
CPT/HCPCS: 93926; 99215

== ENCOUNTER → 2017-12-08 | Outpatient (CLI) | payer MEDICARE, OTHER ==
[2017-11-21 11:55] VITALS: BP 97/47
== END | disposition home or self-care (01) ==
LOC: PMGWOUND 09:21
PROVIDERS: ATTEND Emergency Medicine Undersea and Hyperbaric Medicine
DX: S81.811D Laceration without foreign body, right lower leg, subsequent encounter (principal); S90.521D Blister (nonthermal), right ankle, subsequent encounter; E11.51 Type 2 diabetes mellitus with diabetic peripheral angiopathy without gangrene; E11.649 Type 2 diabetes mellitus with hypoglycemia without coma; L03.116 Cellulitis of left lower limb; I70.201 Unspecified atherosclerosis of native arteries of extremities, right leg; E55.9 Vitamin D deficiency, unspecified; I48.91 Unspecified atrial fibrillation; I42.9 Cardiomyopathy, unspecified; K21.9 Gastro-esophageal reflux disease without esophagitis; G80.9 Cerebral palsy, unspecified; E66.8 Other obesity; Z68.1 Body mass index [BMI] 19.9 or less, adult; X58.XXXD Exposure to other specified factors, subsequent encounter
CPT/HCPCS: 97597; 97598

== ENCOUNTER → 2017-12-15 | Outpatient (CLI) | payer MEDICARE, OTHER ==
[2017-11-21 11:55] VITALS: BP 97/47
== END | disposition home or self-care (01) ==
LOC: PMGWOUND 09:19
PROVIDERS: ATTEND Emergency Medicine Undersea and Hyperbaric Medicine
DX: S51.811A Laceration without foreign body of right forearm, initial encounter (principal); S81.812A Laceration without foreign body, left lower leg, initial encounter; S81.811D Laceration without foreign body, right lower leg, subsequent encounter; S90.521D Blister (nonthermal), right ankle, subsequent encounter; E11.51 Type 2 diabetes mellitus with diabetic peripheral angiopathy without gangrene; E11.649 Type 2 diabetes mellitus with hypoglycemia without coma; I70.201 Unspecified atherosclerosis of native arteries of extremities, right leg; E55.9 Vitamin D deficiency, unspecified; K21.9 Gastro-esophageal reflux disease without esophagitis; I48.91 Unspecified atrial fibrillation; I42.9 Cardiomyopathy, unspecified; G80.9 Cerebral palsy, unspecified; E66.8 Other obesity; Z68.1 Body mass index [BMI] 19.9 or less, adult; X58.XXXA Exposure to other specified factors, initial encounter; X58.XXXD Exposure to other specified factors, subsequent encounter; Y93.89 Activity, other specified; Y92.89 Other specified places as the place of occurrence of the external cause; Y99.8 Other external cause status
CPT/HCPCS: 99214; G0463

== ENCOUNTER → 2017-12-29 | Outpatient (CLI) | payer MEDICARE, OTHER | END | disposition home or self-care (01) | LOC: PMGWOUND 09:29 | PROVIDERS: ATTEND Emergency Medicine Undersea and Hyperbaric Medicine | DX: E11.622 Type 2 diabetes mellitus with other skin ulcer (principal); L97.312 Non-pressure chronic ulcer of right ankle with fat layer exposed; I70.233 Atherosclerosis of native arteries of right leg with ulceration of ankle; E11.649 Type 2 diabetes mellitus with hypoglycemia without coma; E11.51 Type 2 diabetes mellitus with diabetic peripheral angiopathy without gangrene; I48.91 Unspecified atrial fibrillation; K21.9 Gastro-esophageal reflux disease without esophagitis; I42.9 Cardiomyopathy, unspecified; E66.8 Other obesity; Z68.1 Body mass index [BMI] 19.9 or less, adult | CPT/HCPCS: 99214; G0463 ==

== ENCOUNTER → 2018-01-12 | Outpatient (CLI) | payer MEDICARE, OTHER | END | disposition home or self-care (01) | LOC: PMGWOUND 09:31 | PROVIDERS: ATTEND Emergency Medicine Undersea and Hyperbaric Medicine | DX: E11.622 Type 2 diabetes mellitus with other skin ulcer (principal); L97.312 Non-pressure chronic ulcer of right ankle with fat layer exposed; I70.233 Atherosclerosis of native arteries of right leg with ulceration of ankle; E11.51 Type 2 diabetes mellitus with diabetic peripheral angiopathy without gangrene; E11.649 Type 2 diabetes mellitus with hypoglycemia without coma; I48.91 Unspecified atrial fibrillation; G80.9 Cerebral palsy, unspecified; I42.9 Cardiomyopathy, unspecified; E55.9 Vitamin D deficiency, unspecified; K21.9 Gastro-esophageal reflux disease without esophagitis; I25.10 Atherosclerotic heart disease of native coronary artery without angina pectoris; E66.8 Other obesity; Z68.1 Body mass index [BMI] 19.9 or less, adult | CPT/HCPCS: 99214; G0463 ==

== ENCOUNTER → 2018-02-02 | Outpatient (CLI) | payer MEDICARE, OTHER | END | disposition home or self-care (01) | LOC: PMGWOUND 09:22 | PROVIDERS: ATTEND Emergency Medicine Undersea and Hyperbaric Medicine | DX: E11.622 Type 2 diabetes mellitus with other skin ulcer (principal); L97.811 Non-pressure chronic ulcer of other part of right lower leg limited to breakdown of skin; E11.649 Type 2 diabetes mellitus with hypoglycemia without coma; E11.51 Type 2 diabetes mellitus with diabetic peripheral angiopathy without gangrene; K21.9 Gastro-esophageal reflux disease without esophagitis; I48.91 Unspecified atrial fibrillation; I42.9 Cardiomyopathy, unspecified; I25.10 Atherosclerotic heart disease of native coronary artery without angina pectoris; E66.8 Other obesity; Z68.1 Body mass index [BMI] 19.9 or less, adult | CPT/HCPCS: 99215 ==

== ENCOUNTER → 2018-02-16 | Outpatient (CLI) | payer MEDICARE, OTHER ==
[~2018-02-16] MED LIST changes: +HYDR-3164 PO; -HYDR-971 PO
== END | disposition home or self-care (01) ==
LOC: PMGWOUND 09:27
PROVIDERS: ATTEND Emergency Medicine Undersea and Hyperbaric Medicine
DX: E11.622 Type 2 diabetes mellitus with other skin ulcer (principal); L97.312 Non-pressure chronic ulcer of right ankle with fat layer exposed; S90.822A Blister (nonthermal), left foot, initial encounter; I70.233 Atherosclerosis of native arteries of right leg with ulceration of ankle; E11.649 Type 2 diabetes mellitus with hypoglycemia without coma; E11.51 Type 2 diabetes mellitus with diabetic peripheral angiopathy without gangrene; K21.9 Gastro-esophageal reflux disease without esophagitis; I42.9 Cardiomyopathy, unspecified; I48.91 Unspecified atrial fibrillation; E66.8 Other obesity; G80.9 Cerebral palsy, unspecified; I25.10 Atherosclerotic heart disease of native coronary artery without angina pectoris; Z68.1 Body mass index [BMI] 19.9 or less, adult; X58.XXXA Exposure to other specified factors, initial encounter; Y93.89 Activity, other specified; Y92.89 Other specified places as the place of occurrence of the external cause; Y99.8 Other external cause status
CPT/HCPCS: 99215

== ENCOUNTER → 2018-03-16 | Outpatient (CLI) | payer MEDICARE, OTHER | END | disposition home or self-care (01) | LOC: PMGWOUND 09:27 | PROVIDERS: ATTEND Emergency Medicine Undersea and Hyperbaric Medicine | DX: E11.622 Type 2 diabetes mellitus with other skin ulcer (principal); L97.312 Non-pressure chronic ulcer of right ankle with fat layer exposed; I70.233 Atherosclerosis of native arteries of right leg with ulceration of ankle; E11.649 Type 2 diabetes mellitus with hypoglycemia without coma; E11.51 Type 2 diabetes mellitus with diabetic peripheral angiopathy without gangrene; I48.91 Unspecified atrial fibrillation; I42.9 Cardiomyopathy, unspecified; G80.9 Cerebral palsy, unspecified; K21.9 Gastro-esophageal reflux disease without esophagitis; I25.10 Atherosclerotic heart disease of native coronary artery without angina pectoris; E66.8 Other obesity; Z68.1 Body mass index [BMI] 19.9 or less, adult | CPT/HCPCS: 99214; G0463 ==

== ENCOUNTER 2019-07-02 09:03 | Emergency (ER) | payer OTHER, MEDICAID ==
[~2019-07-02] VITALS: Ht 152.4 cm; Wt 30.0 kg
[~2019-07-02 09:03] MED LIST changes: +GUAI-467 PO; -GUAI100L27 PO; -MAGN2400 PO; +MAGN24003 PO; -MELA3TAB2 PO; +MELA3TAB4 PO; +OMEP20CA16 PO; -OMEP20CA9 PO; -TIZA4TAB PO; +TIZA4TAB2 PO
[2019-07-02] MEDS ORDERED: IOHEXOL 300 MG/ML 50 ML VIAL. PO ONE (09:45)
--- NOTE | 2019-07-02 10:28 | RAD ---
Abdomen AP portable at 0949: Reason for examination: NG tube placement. 40 cc Omnipaque 300 was injected through the G-tube and image was then obtained. Catheter appears to be present in the stomach with the contrast collecting in the gastric cardia. Bowel gas pattern is nonspecific. No gross organomegaly is seen. Surgical clips are seen in the right upper quadrant from previous cholecystectomy. Lung cervantes appears show increased interstitial markings. There is bony demineralization. There is arteriosclerotic vascular calcification. IMPRESSION: G-tube appears to be present in stomach with contrast collecting in the gastric cardia. Electronically signed by: Rocio Sandra MD (07/02/2019 10:25 AM) [id number]
[2019-07-02 10:42] VITALS: BP 123/57
--- NOTE | 2019-07-02 10:48 | PHYS DOC ---
Past Medical History Past Medical History: Other Additional Past Medical Histor: SEASONAL ALLERGIES,MR; Cerebral Palsy Past Surgical History: Hip Replacement Additional Past Surgical Histo: BILATERAL; G-tube Smoking Status: Never Smoker Alcohol Use: None Drug Use: None Adult General Chief Complaint Chief Complaint: GTUBE REPLACEMENT/MALFUNCTION HPI HPI Patient is a 73 year old female presenting to the due to chief complaint of G- tube dislodgment. Patient has a history of cerebral palsy and so history is given by the nurse that accompanied her to the ER. G-tube was dislodged within 1 hour prior to arrival to the ED. Review of Systems Review of Systems No STEMI that patient has fever, chills, nausea, vomiting, diarrhea, shortness of breath. All other systems were reviewed and found to be within normal limits, except as documented in this note. Current Medications Current Medications Current Medications Medications (Trade) Dose Ordered Sig/Caden Start Time Stop Time Status Last Admin Dose Admin Iohexol (Omnipaque 300 Mg/ml) 50 ml 1X ONCE 07/02/19 09:45 07/02/19 09:47 DC 07/02/19 10:11 50 ML Allergies Allergies Allergies Coded Allergies Type Severity Reaction Last Updated Verified No Known Drug Allergies 11/17/17 No Physical Exam Physical Exam Constitutional: Well developed, well nourished, no acute distress, non-toxic appearance. [] HENT: Normocephalic, atraumatic, . [] Eyes: PERRLA, EOMI, conjunctiva normal, no discharge. [] Neck: Normal range of motion. [] Cardiovascular:Heart rate regular rhythm, no murmur [] Lungs & Thorax: Bilateral breath sounds clear to auscultation [] Abdomen: G-tube was dislodged. No cellulitis around the insertion site.[] Neurologic: Alert Current Patient Data Vital Signs Vital Signs Date Time Temp Pulse Resp B/P (MAP) Pulse Ox O2 Delivery O2 Flow Rate FiO2 07/02/19 10:42 72 16 123/57 (79) 98 Room Air 07/02/19 09:03 97.0 97.0 EKG EKG [] Radiology/Procedures Radiology/Procedures [] Impressions: Abdominal x-ray shows that the G-tube is in correct placement. Course & Med Decision Making Course & Med Decision Making Pertinent maging studies reviewed. (See chart for details) 18 Vietnamese G-tube reinserted. Patient tolerated procedure without any difficulty. KUB x-ray shows that the G-tube is in correct placement. Patient will be discharged home. Dragon Disclaimer Dragon Disclaimer This electronic medical record was generated, in whole or in part, using a voice recognition dictation system. Departure Departure Impression: Primary Impression: Gastrojejunostomy tube dislodgement Disposition: HOME, SELF-CARE Condition: IMPROVED Referrals: SANJANA PIZARRO MD (PCP) Patient Instructions: Care of a Feeding Tube, [id number] Additional Instructions: Discussed results and plan of care with patient. Patient is instructed to follow up with PCP in one to 2 days. Appropriate discharge instructions given to patient to return to the ED or to seek immediate medical evaluation. Patient is instructed to return to the ED if symptoms worsen or if any concerns. JACQUELINE VIEIRA DO Jul 02, 2019 10:48
== END 2019-07-02 10:58 | disposition home or self-care (01) ==
LOC: ER 09:03
DX: K94.23 Gastrostomy malfunction (principal)
CPT/HCPCS: 43762; 74018; 99284; Q9967

== ENCOUNTER 2019-07-04 08:36 | Emergency (ER) | payer OTHER, MEDICAID ==
[~2019-07-04] VITALS: Ht 147.3 cm; Wt 45.0 kg
[2019-07-04 08:40] VITALS: BP 131/65
[2019-07-04] MEDS ORDERED: IOHEXOL 300 MG/ML 100ML VIAL. IJ ONE (09:30)
[2019-07-04] MEDS ORDERED: IOHEXOL 300 MG/ML 50 ML VIAL. IJ ONE (09:30)
[2019-07-04] MEDS ORDERED: CONTRAST GIVEN. MC PRN ×2 (09:45)
--- NOTE | 2019-07-04 09:55 | PHYS DOC ---
Past Medical History Past Medical History: GERD, Other Additional Past Medical Histor: SEASONAL ALLERGIES,MR; Cerebral Palsy Past Surgical History: Hip Replacement Additional Past Surgical Histo: BILATERAL; G-tube Smoking Status: Never Smoker Alcohol Use: None Drug Use: None Adult General Chief Complaint Chief Complaint: OTHER COMPLAINTS HPI HPI Patient is a 73 year old female with a history of cerebral palsy presenting to the ED with a chief complaint of G-tube dislodgment. Patient was seen 2 days ago for similar complaints and had a G-tube placed at that time. Patient lives in a residential facility. Review of Systems Review of Systems Not able to perform review of systems secondary to patient's mental status. Current Medications Current Medications Current Medications Medications (Trade) Dose Ordered Sig/Caden Start Time Stop Time Status Last Admin Dose Admin Info (CONTRAST GIVEN -- Rx MONITORING) 1 each PRN DAILY PRN 07/04/19 09:45 07/04/19 10:45 DC Iohexol (Omnipaque 300 Mg/ml) 100 ml 1X ONCE 07/04/19 09:30 07/04/19 09:33 DC Allergies Allergies Allergies Coded Allergies Type Severity Reaction Last Updated Verified No Known Drug Allergies 11/17/17 No Physical Exam Physical Exam HENT: Normocephalic, atraumatic Eyes: EOMI Neck: Normal range of motion Lungs & Thorax: No respiratory distress Abdomen: Soft, nontender. Stoma present in the epigastric region Extremities: No tenderness Current Patient Data Vital Signs Vital Signs Date Time Temp Pulse Resp B/P (MAP) Pulse Ox O2 Delivery O2 Flow Rate FiO2 07/04/19 08:40 97.1 69 18 131/65 (87) 98 Room Air 97.1 EKG EKG [] Radiology/Procedures Radiology/Procedures [] Impressions: KUB x-ray shows correct placement of the G-tube IMPRESSION: Intraluminal position of the G-tube within the stomach. Course & Med Decision Making Course & Med Decision Making Pertinent maging studies reviewed. (See chart for details) Inserted a new 18 Y[place] G-tube. Ordered KUB x-ray for placement. X-ray shows that G-tube is in correct placement. Patient will be discharged from the ER. Dragon Disclaimer Dragon Disclaimer This electronic medical record was generated, in whole or in part, using a voice recognition dictation system. Departure Departure Impression: Primary Impression: Gastrojejunostomy tube dislodgement Disposition: 01 HOME, SELF-CARE Condition: IMPROVED Referrals: SANJANA IPZARRO MD (PCP) JACQUELINE VIEIRA DO Jul 04, 2019 09:55
--- NOTE | 2019-07-04 10:14 | RAD ---
AP view of the abdomen Clinical indications: G-tube placement. Check position. FINDINGS: 40 cc of Omnipaque 300 was injected through the indwelling G tube. AP view of the abdomen demonstrates intraluminal position of the contrast. Therefore the G-tube tip is located within the lumen of the stomach. No extravasation of contrast material is seen. GI contrast is seen within the colon. This is related to the previous G-tube injection dated July 02, 2019. Mild fecal retention is seen within the distal colon. No dilatation of the colon or small bowel is seen. IMPRESSION: Intraluminal position of the G-tube within the stomach. Electronically signed by: George Martinez MD (07/04/2019 10:11 AM) [id number]
== END 2019-07-04 10:42 | disposition home or self-care (01) ==
LOC: ER 08:36
DX: K94.23 Gastrostomy malfunction (principal); K21.9 Gastro-esophageal reflux disease without esophagitis
CPT/HCPCS: 43762; 74018; 99284-25

== ENCOUNTER 2019-07-17 16:51 | Emergency (ER) | payer OTHER, MEDICAID ==
[~2019-07-17] VITALS: Ht 142.2 cm; Wt 45.5 kg
[2019-07-17 17:26] VITALS: BP 127/61
--- NOTE | 2019-07-17 17:48 | PHYS DOC ---
Past Medical History Past Medical History: GERD, Other Additional Past Medical Histor: SEASONAL ALLERGIES,MR; Cerebral Palsy Past Surgical History: Hip Replacement Additional Past Surgical Histo: BILATERAL; G-tube Smoking Status: Never Smoker Alcohol Use: None Drug Use: None General Adult EDM: Chief Complaint: GI PROBLEM HPI: HPI: Patient is 73-year-old demented female with a G-tube. She presents here secondary to possible G-tube malfunction. There is been no pain. Patient is unable to provide history secondary to dementia [] Review of Systems: Review of Systems: Review of systems is unobtainable secondary to dementia. [] Heart Score: Risk Factors: Risk Factors: DM, Current or recent (<one month) smoker, HTN, HLP, family history of CAD, obesity. Risk Scores: Score 0 - 3: 2.5% MACE over next 6 weeks - Discharge Home Score 4 - 6: 20.3% MACE over next 6 weeks - Admit for Clinical Observation Score 7 - 10: 72.7% MACE over next 6 weeks - Early Invasive Strategies Allergies: Allergies: Allergies Coded Allergies Type Severity Reaction Last Updated Verified No Known Drug Allergies 11/17/17 No Physical Exam: PE: Constitutional: Frail, elderly, chronically ill [] HENT: Normocephalic, atraumatic, bilateral external ears normal, oropharynx moist, no oral exudates, nose normal. [] Eyes: PERRLA, EOMI, conjunctiva normal, no discharge. [] Neck: Normal range of motion, no tenderness, supple, no stridor. [] Cardiovascular:Heart rate regular rhythm, no murmur [] Lungs & Thorax: Bilateral breath sounds clear to auscultation [] Abdomen: G-tube in place there does not appear to be any problem with the G-tube anatomically I am unable to dislodge it meaning the balloon is still inflated the abdomen is nontender. [] Skin: Warm, dry, no erythema, no rash. [] Current Patient Data: Vital Signs: Vital Signs Date Time Temp Pulse Resp B/P (MAP) Pulse Ox O2 Delivery O2 Flow Rate FiO2 07/17/19 16:55 98.1 77 18 137/61 (86) 100 Room Air 98.1 EKG: EKG: [] Radiology/Procedures: Radiology/Procedures: [] Course & Med Decision Making: Course & Med Decision Making Pertinent Labs and Imaging studies reviewed. (See chart for details) [The G-tube was flushed easily and stomach contents were withdrawn. I do not see any issue with the patient's G-tube.] Jovon Disclaimer: Jovon Disclaimer: This electronic medical record was generated, in whole or in part, using a voice recognition dictation system. Departure Departure Impression: Primary Impression: Gastrostomy tube obstruction Disposition: 01 HOME, SELF-CARE Condition: STABLE Referrals: SANJANA PIZARRO MD (PCP) Additional Instructions: It is okay to use the patient's G-tube JUAN KENDRICK DO Jul 17, 2019 17:48
== END 2019-07-17 17:54 | disposition home or self-care (01) ==
LOC: ER 16:51
DX: K94.23 Gastrostomy malfunction (principal); K21.9 Gastro-esophageal reflux disease without esophagitis; Z98.890 Other specified postprocedural states
CPT/HCPCS: 99284

== ENCOUNTER 2019-11-20 08:20 | Emergency (ER) | payer OTHER, MEDICAID ==
[~2019-11-20] VITALS: Ht 142.2 cm; Wt 31.8 kg
[~2019-11-20 08:20] MED LIST changes: -ASPI-612 PO; +ASPI-886 PO
--- NOTE | 2019-11-20 10:11 | PHYS DOC ---
Past Medical History Past Medical History: GERD, Other Additional Past Medical Histor: SEASONAL ALLERGIES,MR; Cerebral Palsy Past Surgical History: Hip Replacement Additional Past Surgical Histo: BILATERAL; G-tube Smoking Status: Never Smoker Alcohol Use: None Drug Use: None General Adult EDM: Chief Complaint: GTUBE REPLACEMENT/MALFUNCTION HPI: HPI: Patient is a 74-year-old female from [facility] with a history of a G-tube. Somehow the G-tube pulled out this morning and she is here for G-tube replacement. Patient is unable to provide any history secondary to her underlying chronic dementia [] Review of Systems: Review of Systems: Review of systems is unobtainable secondary to chronic dementia [] Heart Score: Risk Factors: Risk Factors: DM, Current or recent (<one month) smoker, HTN, HLP, family history of CAD, obesity. Risk Scores: Score 0 - 3: 2.5% MACE over next 6 weeks - Discharge Home Score 4 - 6: 20.3% MACE over next 6 weeks - Admit for Clinical Observation Score 7 - 10: 72.7% MACE over next 6 weeks - Early Invasive Strategies Allergies: Allergies: Allergies Coded Allergies Type Severity Reaction Last Updated Verified No Known Drug Allergies 11/17/17 No Physical Exam: PE: Constitutional: Well developed, well nourished, no acute distress, non-toxic appearance. [] HENT: Normocephalic, atraumatic, bilateral external ears normal, oropharynx moist, no oral exudates, nose normal. [] Eyes: PERRLA, EOMI, conjunctiva normal, no discharge. [] Neck: Normal range of motion, no tenderness, supple, no stridor. [] Cardiovascular:Heart rate regular rhythm, no murmur [] Lungs & Thorax: Bilateral breath sounds clear to auscultation [] Abdomen: Abdomen is soft stoma appears to be in good repair. [] Skin: Warm, dry, no erythema, no rash. [] Back: No tenderness, no CVA tenderness. [] Extremities: No tenderness, no cyanosis, no clubbing, ROM intact, no edema. [] Neurologic: Alert moves all 4 extremities [] Psychologic: Anxious [] Current Patient Data: Vital Signs: Vital Signs Date Time Temp Pulse Resp B/P (MAP) Pulse Ox O2 Delivery O2 Flow Rate FiO2 11/20/19 08:30 97.8 71 20 121/58 (79) 100 Room Air 97.8 EKG: EKG: [] Radiology/Procedures: Radiology/Procedures: []PROCEDURE: KUB EXAM: ABDOMEN ONE VIEW. HISTORY: Gastrostomy placement. COMPARISON: 07/04/2019. FINDINGS: A frontal view of the abdomen is obtained after injection of water-soluble contrast through the gastrostomy tube. The gastrostomy balloon is intraluminal. No leakage of contrast is identified. There are no distended small bowel loops. There is gas distally. Stool throughout the colon is consistent with constipation. Cholecystectomy clips, a left hip hemiarthroplasty, and changes of internal fixation of a right proximal femoral fracture are noted. IMPRESSION: 1. The gastrostomy tube is intraluminal. 2. Findings consistent with constipation. Course & Med Decision Making: Course & Med Decision Making Pertinent Labs and Imaging studies reviewed. (See chart for details) [Procedure: G-tube replacement A 20 [place] gastrostomy tube was inserted without difficulty the balloon was filled with 20 mL's of water. A KUB with Omnipaque was ordered reviewed and the tube is in the appropriate position. Patient tolerated the procedure well] GuestShots Disclaimer: [employer] Disclaimer: This electronic medical record was generated, in whole or in part, using a voice recognition dictation system. Departure Departure Impression: Primary Impression: Dislodged gastrostomy tube Disposition: HOME, SELF-CARE Condition: IMPROVED Referrals: SANJANA PIZARRO MD (PCP) Patient Instructions: Gastrostomy Tube, Adult Additional Instructions: Okay to use the G-tube. Justicifation of Admission Dx: Justifications for Admission: Justification of Admission Dx: JUAN Farah DO Nov 20, 2019 10:11
[2019-11-20] MEDS ORDERED: CONTRAST GIVEN. MC PRN (10:15)
[2019-11-20] MEDS ORDERED: IOHEXOL 300 MG/ML 50 ML VIAL. PO ONE (10:15)
--- NOTE | 2019-11-20 10:34 | RAD ---
EXAM: ABDOMEN ONE VIEW. HISTORY: Gastrostomy placement. COMPARISON: 07/04/2019. FINDINGS: A frontal view of the abdomen is obtained after injection of water-soluble contrast through the gastrostomy tube. The gastrostomy balloon is intraluminal. No leakage of contrast is identified. There are no distended small bowel loops. There is gas distally. Stool throughout the colon is consistent with constipation. Cholecystectomy clips, a left hip hemiarthroplasty, and changes of internal fixation of a right proximal femoral fracture are noted. IMPRESSION: 1. The gastrostomy tube is intraluminal. 2. Findings consistent with constipation. Electronically signed by: Leigh Avitia MD (11/20/2019 10:31 AM) [id number]
[2019-11-20 12:00] VITALS: BP 131/61
== END 2019-11-20 12:13 | disposition home or self-care (01) ==
LOC: ER 08:20
DX: K94.23 Gastrostomy malfunction (principal); Y83.8 Other surgical procedures as the cause of abnormal reaction of the patient, or of later complication, without mention of misadventure at the time of the procedure; Y82.8 Other medical devices associated with adverse incidents
CPT/HCPCS: 43762; 74018; 99285; Q9967

== ENCOUNTER → 2019-12-06 | Outpatient (CLI) | payer OTHER, MEDICAID ==
[2019-11-20 12:00] VITALS: BP 131/61
--- NOTE | 2019-12-06 16:35 | KCIC ---
FACIAL BONES 3+V 12/06/2019 12:00 AM INDICATION: Contusion to the right high COMPARISON: None available. TECHNIQUE: 3 views of the maxillofacial structures. FINDINGS/ IMPRESSION: Osseous orbits are intact. No acute fracture is identified. Maxillary sinuses are intact. Nasal septum is predominantly midline. Paranasal sinuses are well aerated. Mastoid air cells are well aerated. Calvaria is intact. No lytic lesion or calvarial fracture. Patient is edentulous. Electronically signed by: Mary Coronado MD (12/06/2019 4:32 PM) [facility]
== END | disposition home or self-care (01) ==
LOC: KCIC 15:18
PROVIDERS: ATTEND Family Medicine
DX: S00.83XA Contusion of other part of head, initial encounter (principal); X58.XXXA Exposure to other specified factors, initial encounter; Y93.89 Activity, other specified; Y92.89 Other specified places as the place of occurrence of the external cause; Y99.8 Other external cause status
CPT/HCPCS: 70150

== ENCOUNTER 2019-12-10 11:52 | Emergency (ER) | payer OTHER, MEDICAID ==
[~2019-12-10] VITALS: Ht 134.6 cm; Wt 36.6 kg
[2019-12-10 12:11] VITALS: BP 147/60
--- NOTE | 2019-12-10 12:29 | PHYS DOC ---
Past Medical History Past Medical History: GERD, Other Additional Past Medical Histor: SEASONAL ALLERGIES,MR; Cerebral Palsy Past Surgical History: Hip Replacement Additional Past Surgical Histo: BILATERAL; G-tube Smoking Status: Never Smoker Alcohol Use: None Drug Use: None General Adult EDM: Chief Complaint: GTUBE REPLACEMENT/MALFUNCTION HPI: HPI: Patient is a 74 year old female who presents the ED today to have a G-tube replaced. Nursing staff report the G-tube came out this morning Review of Systems: Review of Systems: Constitutional: Denies fever or chills. [] [] Cardiovascular: Denies chest pain or edema. [] GI: Feeding tube replacement. Denies abdominal pain, nausea, vomiting, bloody stools or diarrhea. [] : Denies dysuria. [] Musculoskeletal: Denies back pain or joint pain. [] Integument: Denies rash. [] Neurologic: Denies headache, focal weakness or sensory changes. [] Psychiatric: Denies depression or anxiety. [] Heart Score: Risk Factors: Risk Factors: DM, Current or recent (<one month) smoker, HTN, HLP, family history of CAD, obesity. Risk Scores: Score 0 - 3: 2.5% MACE over next 6 weeks - Discharge Home Score 4 - 6: 20.3% MACE over next 6 weeks - Admit for Clinical Observation Score 7 - 10: 72.7% MACE over next 6 weeks - Early Invasive Strategies Allergies: Allergies: Allergies Coded Allergies Type Severity Reaction Last Updated Verified No Known Drug Allergies 11/17/17 No Physical Exam: PE: Constitutional: Well developed, well nourished, no acute distress, non-toxic appearance. [] Cardiovascular:Heart rate regular rhythm, no murmur [] Lungs & Thorax: Bilateral breath sounds clear to auscultation [] Abdomen: feeding replaced by RN. Bowel sounds normal, soft, no tenderness, no masses, no pulsatile masses. [] Skin: Warm, dry, no erythema, no rash. [] Back: No tenderness, no CVA tenderness. [] Extremities: No tenderness, no cyanosis, no clubbing, ROM intact, no edema. [] Neurologic: Alert and oriented X 3, normal motor function, normal sensory function, no focal deficits noted. [] Psychologic: Affect normal, judgement normal, mood normal. [] Current Patient Data: Vital Signs: Vital Signs Date Time Temp Pulse Resp B/P (MAP) Pulse Ox O2 Delivery O2 Flow Rate FiO2 12/10/19 12:11 97.5 64 20 147/60 (89) 98 Room Air 97.5 EKG: EKG: [] Radiology/Procedures: Radiology/Procedures: []PROCEDURE: KUB AP abdomen x-ray HISTORY: Feeding tube placement, injection of 50 mL Omnipaque 300 iodine contrast prior to x-ray acquisition. COMPARISON: Abdomen x-ray November 20, 2019. FINDINGS: The ordering physician instructed the RT to inject 50 mL of iodine based contrast through the gastrostomy tube. The radiologist was not present during this procedure. Coarse interstitial markings lung bases may indicate chronic interstitial disease stable. Contrast fills a gastrostomy tube tip at the left upper quadrant within the stomach surrounded by contrast within the stomach with contrast extending to the duodenum and proximal jejunum at the left upper quadrant, no leakage of contrast outside of the bowel documented. Moderate stool and barium contrast within the rectum. Moderate volume of stool throughout the colon. IMPRESSION: Contrast fills the gastrostomy tube, stomach and proximal small bowel. No leakage of contrast evident. Constipation with a prominent volume of stool. Electronically signed by: Mayur Osorio MD (12/10/2019 1:03 PM) [id number] DICTATED and SIGNED BY: MAYUR OSORIO MD DATE: 12/10/19 1303 Course & Med Decision Making: Course & Med Decision Making Pertinent Labs and Imaging studies reviewed. (See chart for details) This is a 74-year-old female patient presenting to the ED today for G-tube replacement. G-tube was replaced by the RN, CIARA confirmed placement. D/c [employer] Disclaimer: Dragon Disclaimer: This electronic medical record was generated, in whole or in part, using a voice recognition dictation system. Departure Departure Impression: Primary Impression: Encounter for feeding tube placement Disposition: HOME, SELF-CARE Condition: STABLE Referrals: SANJANA PIZARRO MD (PCP) Follow-up as needed Patient Instructions: Care of a Feeding Tube, [id number] Additional Instructions: Your feeding tube was replaced. Follow-up with your doctor as needed. Justicifation of Admission Dx: Justifications for Admission: Justification of Admission Dx: N/A SALINAS NG GARNETT MECHANIC Dec 10, 2019 12:29
[2019-12-10] MEDS ORDERED: IOHEXOL 300 MG/ML 50 ML VIAL. IJ ONE (12:30)
[2019-12-10] MEDS ORDERED: CONTRAST GIVEN. MC PRN (12:45)
--- NOTE | 2019-12-10 13:06 | RAD ---
AP abdomen x-ray HISTORY: Feeding tube placement, injection of 50 mL Omnipaque 300 iodine contrast prior to x-ray acquisition. COMPARISON: Abdomen x-ray November 20, 2019. FINDINGS: The ordering physician instructed the RT to inject 50 mL of iodine based contrast through the gastrostomy tube. The radiologist was not present during this procedure. Coarse interstitial markings lung bases may indicate chronic interstitial disease stable. Contrast fills a gastrostomy tube tip at the left upper quadrant within the stomach surrounded by contrast within the stomach with contrast extending to the duodenum and proximal jejunum at the left upper quadrant, no leakage of contrast outside of the bowel documented. Moderate stool and barium contrast within the rectum. Moderate volume of stool throughout the colon. IMPRESSION: Contrast fills the gastrostomy tube, stomach and proximal small bowel. No leakage of contrast evident. Constipation with a prominent volume of stool. Electronically signed by: Jeremiah Osorio MD (12/10/2019 1:03 PM) [id number]
== END 2019-12-10 13:42 | disposition home or self-care (01) ==
LOC: ER 11:52
DX: K94.23 Gastrostomy malfunction (principal); K21.9 Gastro-esophageal reflux disease without esophagitis; Z98.890 Other specified postprocedural states
CPT/HCPCS: 43762; 74018; 99284; Q9967

== ENCOUNTER 2020-01-13 07:35 | Emergency (ER) | payer OTHER, MEDICAID ==
[~2020-01-13] VITALS: Ht 152.4 cm; Wt 40.0 kg
[2020-01-13 07:35] VITALS: BP 123/83
[~2020-01-13 07:35] MED LIST changes: +PSEU-57 PO; -PSEU30TA24 PO
[2020-01-13] MEDS ORDERED: CONTRAST GIVEN. MC PRN (08:00)
[2020-01-13] MEDS ORDERED: IOHEXOL 300 MG/ML 50 ML VIAL. IJ ONE (08:00)
--- NOTE | 2020-01-13 08:04 | PHYS DOC ---
Past Medical History Past Medical History: GERD, Other Additional Past Medical Histor: SEASONAL ALLERGIES,MR; Cerebral Palsy Past Surgical History: Hip Replacement Additional Past Surgical Histo: BILATERAL; G-tube Smoking Status: Never Smoker Alcohol Use: None Drug Use: None General Adult EDM: Chief Complaint: OTHER COMPLAINTS HPI: HPI: History obtained from EMS. Patient is a 74-year-old female with past medical history notable cerebral palsy and PEG tube dependency who presents with PEG tube dislodgment. EMS states were called the patient's nursing facility due to PEG tube dislodgment. Unclear exactly when the PEG tube was initially placed however it does appear chronic in nature she has had multiple visits for similar complaints. No further history can be obtained from EMS or the patient secondary to her cerebral palsy. Review of Systems: Review of Systems: Constitutional: Denies fever or chills. [] Eyes: Denies change in visual acuity. [] HENT: Denies nasal congestion or sore throat. [] Respiratory: Denies cough or shortness of breath. [] Cardiovascular: Denies chest pain or edema. [] GI: Denies abdominal pain, nausea, vomiting, bloody stools or diarrhea. [] : Denies dysuria. [] Musculoskeletal: Denies back pain or joint pain. [] Integument: Denies rash. [] Neurologic: Denies headache, focal weakness or sensory changes. [] Endocrine: Denies polyuria or polydipsia. [] Lymphatic: Denies swollen glands. [] Psychiatric: Denies depression or anxiety. [] Heart Score: Risk Factors: Risk Factors: DM, Current or recent (<one month) smoker, HTN, HLP, family history of CAD, obesity. Risk Scores: Score 0 - 3: 2.5% MACE over next 6 weeks - Discharge Home Score 4 - 6: 20.3% MACE over next 6 weeks - Admit for Clinical Observation Score 7 - 10: 72.7% MACE over next 6 weeks - Early Invasive Strategies Current Medications: Current Medications Medications (Trade) Dose Ordered Sig/Caden Start Time Stop Time Status Last Admin Dose Admin Info (CONTRAST GIVEN -- Rx MONITORING) 1 each PRN DAILY PRN 01/13/20 08:00 01/15/20 07:59 Iohexol (Omnipaque 300 Mg/ml) 50 ml 1X ONCE 01/13/20 08:00 01/13/20 08:01 DC 01/13/20 07:58 50 ML Allergies: Allergies: Allergies Coded Allergies Type Severity Reaction Last Updated Verified No Known Drug Allergies 11/17/17 No Physical Exam: PE: Constitutional: Well developed, malnourished, no acute distress, non-toxic appearance. [] HENT: Normocephalic, atraumatic, bilateral external ears normal, oropharynx moist, no oral exudates, nose normal. [] Eyes: PERRLA, EOMI, conjunctiva normal, no discharge. [] Neck: Normal range of motion, no tenderness, supple, no stridor. [] Cardiovascular:Heart rate regular rhythm, no murmur [] Lungs & Thorax: Bilateral breath sounds clear to auscultation [] Abdomen: Soft, nontender, nonacute abdomen. No involuntary guarding or rigidity noted. No acute peritonitis. G-tube insertion site appears well-healed. No purulent drainage. No surrounding erythema or induration. Skin: Warm, dry, no erythema, no rash. [] Back: No tenderness, no CVA tenderness. [] Extremities: No tenderness, no cyanosis, no clubbing, ROM intact, no edema. [] Neurologic: no focal deficits noted. [] Current Patient Data: Vital Signs: Vital Signs Date Time Temp Pulse Resp B/P (MAP) Pulse Ox O2 Delivery O2 Flow Rate FiO2 01/13/20 07:35 97.8 74 16 123/83 (96) 96 Room Air 97.8 EKG: EKG: [] Radiology/Procedures: Radiology/Procedures: [facility] [address] [place] [address] IMAGING REPORT Signed PATIENT: FELECIA DICKSONCOUNT: [id number] : 1945 LOCATION: ER AGE: 74 SEX: F EXAM STATUS: REG ER ORD. PHYSICIAN: HAO PETTIT DO REASON: confirm PEG tube placement PROCEDURE: CIARA URBINA Clinical Indication: Reason: confirm PEG tube placement / Comparison: KUB, December 10, 2019. Findings: Oral contrast outlines the proximal stomach. PEG tube is in appropriate position. Small amount of contrast is seen in the duodenum. No extravasation of contrast is seen. Lung bases are clear. Moderate colon stool volume is unchanged. Cholecystectomy clips. Stable hardware of the hips. Arterial calcifications are seen. IMPRESSION: 1. PEG tube in appropriate position. No evidence of leak. 2. Unchanged moderate colon stool volume suggests constipation. Electronically signed by: Akira Mckeon MD (01/13/2020 8:06 AM) [facility] DICTATED and SIGNED BY: AKIRA MCKEON MD DATE: 01/13/20805 [] Course & Med Decision Making: Course & Med Decision Making Pertinent Labs and Imaging studies reviewed. (See chart for details) [] Patient is a 74-year-old female presents with chief complaint of G-tube dislodgment. Patient's G-tube was replaced with clean sterile version. This was replaced with ease in the emergency department. KUB did confirm appropriate placement without extravasation. Patient is appropriate for discharge back to her nursing care facility. Dragon Disclaimer: Dragon Disclaimer: This electronic medical record was generated, in whole or in part, using a voice recognition dictation system. Departure Departure Impression: Primary Impression: Encounter for feeding tube placement Disposition: 01 DC HOME SELF CARE/HOMELESS Condition: STABLE Referrals: SANJANA PIZARRO MD (PCP) Patient Instructions: Care of a Feeding Tube Site HAO PETTIT DO Jan 13, 2020 08:04
--- NOTE | 2020-01-13 08:09 | RAD ---
CIARA Clinical Indication: Reason: confirm PEG tube placement / Comparison: CIARA, December 10, 2019. Findings: Oral contrast outlines the proximal stomach. PEG tube is in appropriate position. Small amount of contrast is seen in the duodenum. No extravasation of contrast is seen. Lung bases are clear. Moderate colon stool volume is unchanged. Cholecystectomy clips. Stable hardware of the hips. Arterial calcifications are seen. IMPRESSION: 1. PEG tube in appropriate position. No evidence of leak. 2. Unchanged moderate colon stool volume suggests constipation. Electronically signed by: Akira Mckeon MD (01/13/2020 8:06 AM) [facility]
== END 2020-01-13 10:05 | disposition home or self-care (01) ==
LOC: ER 07:35
DX: K94.23 Gastrostomy malfunction (principal); K21.9 Gastro-esophageal reflux disease without esophagitis; G80.9 Cerebral palsy, unspecified; Z98.890 Other specified postprocedural states
CPT/HCPCS: 43762; 74018; 99284; Q9967

== ENCOUNTER 2020-08-20 19:53 | Emergency (ER) | payer OTHER, MEDICAID ==
[~2020-08-20] VITALS: Ht 137.2 cm; Wt 40.3 kg
[~2020-08-20 19:53] MED LIST changes: -GUAI-467 PO; -LIDO30CR TP; +LIDO30CR2 TP; +[UNRECOGNIZED DRUG - CODE] PO
--- NOTE | 2020-08-20 20:46 | PHYS DOC ---
Past Medical History Past Medical History: GERD, Other Additional Past Medical Histor: SEASONAL ALLERGIES,MR; Cerebral Palsy Past Surgical History: Hip Replacement Additional Past Surgical Histo: BILATERAL; G-tube Smoking Status: Never Smoker Alcohol Use: None Drug Use: None General Adult EDM: Chief Complaint: NEURO SYMPTOMS/DEFICITS HPI: HPI: 74-year-old female past medical history of MR presents for the evaluation of contracture to right arm. Patient is accompanied by her caregiver who states patient has had contracture of her her right hand ongoing for 1 month. Patients right hand closed in a fist. Patient does not allow me to open fingers--- pulls away and screws as if in pain. NO swelling of the wrist noted. On exam patient has no focal neurological deficits. She is happy and smiling--- she stated she was cold she was provided a blanket. Asked patient how she was doing and she blew me a kiss. I see no facial weakness left upper or bilateral lower extremity weakness. She moves all other extremities. Caregiver states patient is currently being worked up by primary care provider for contracture of hand. Patient was recently placed on a muscle relaxant which caregiver states she does not noticed any improvement. Patient also has follow- up appointment scheduled with specialist. DURABLE POWER OF MANAGER INVENTORY CONTROL requested patient come to the ER for CT imaging and chest x-ray. Caregiver does not notice any other abnormalities with patient. No history of fever chills cough vomiting or diarrhea. Review of Systems: Review of Systems: Limited due to medical condition Heart Score: C/O Chest Pain: N/A Risk Factors: Risk Factors: DM, Current or recent (<one month) smoker, HTN, HLP, family history of CAD, obesity. Risk Scores: Score 0 - 3: 2.5% MACE over next 6 weeks - Discharge Home Score 4 - 6: 20.3% MACE over next 6 weeks - Admit for Clinical Observation Score 7 - 10: 72.7% MACE over next 6 weeks - Early Invasive Strategies Allergies: Allergies: Allergies Coded Allergies Type Severity Reaction Last Updated Verified No Known Drug Allergies 11/17/17 No Physical Exam: PE: General: alert, no acute distress. Skin: warm, dry and intact. Head:: Normocephalic, atraumatic. Neck: Trachea midline. Eyes: EOMI, Normal conjunctiva, No drainage CARDIOVASCULAR: Regular rate and rhythm RESPIRATORY: No respiratory distress MUSCULOSKELETAL: Full range of motion of bilateral lower extremities. and left upper extremity, patient keeps rue ABducted, Right hand kept in a fist. Patient does not allow me to open hand--- pulls away and screamss as if in pain. NO swelling of the wrist noted. GASTROINTESTINAL: Abdomen soft without rebound or guarding. NEUROLOGICAL: Alert Psychiatric: Cooperative. EKG: EKG: [] EKG performed at 2018 heart rate [address] elevation no ST depr ession no acute TX First-degree AV block Radiology/Procedures: Radiology/Procedures: [] Impression: IMPRESSION: 1. Soft tissue swelling surrounding the wrist without underlying acute osseous abnormality identified. 2. Widening of the scapholunate interval, likely related to prior trauma/chronic ligamentous injury. Course & Med Decision Making: Course & Med Decision Making Pertinent Labs and Imaging studies reviewed. (See chart for details) [] Patient was evaluated for chief complaint. Work-up consisted of laboratory analysis and radiologic imaging. Results reviewed and discussed with caregiver. Radiologist sees no acute fractures of patient's wrist. He does acknowledge soft tissue swelling and scapholunate widening which he suspects is chronic in nature. Patient does not have tenderness to palpation over this region. She does complain of pain when trying to straighten her fingers. CT imaging of the head no acute abnormality chest x-ray no focal infiltrate. Patient's initial potassium hemolyzed redrawn within normal limits. Patient has an appointment with neurology will need to follow-up as scheduled. Jovon Disclaimer: Jovon Disclaimer: This electronic medical record was generated, in whole or in part, using a voice recognition dictation system. Departure Departure Impression: Primary Impression: External constriction of hand Referrals: SANJANA PIZARRO MD (PCP) ALINE MCKENNA I DO August 20, 2020 20:46
[2020-08-20 20:52] LABS: BASO % 1 % (0-3); EOS # 0.3 x10^3/uL (0.0-0.7); EOS % 4 % (0-3); HEMATOCRIT 41.7 % (36.0-47.0); HEMOGLOBIN 13.8 g/dL (12.0-15.5); LYMPH % 15 % (24-48); MEAN CORPUSCULAR HEMOGLOBIN 31 pg (25-35); MEAN CORPUSCULAR HGB CONC 33 g/dL (31-37); MEAN CORPUSCULAR VOLUME 92 fL (79-100); MONO # 0.9 x10^3/uL (0.0-1.1); MONO % 13 % (0-9); NEUT # 4.7 x10^3/uL (1.8-7.7); NEUT % 68 % (31-73); PLATELET COUNT 243 x10^3/uL (140-400); RED BLOOD COUNT 4.51 x10^6/uL (3.50-5.40); RED CELL DISTRIBUTION WIDTH 16.3 % (11.5-14.5)
[2020-08-20 21:05] LABS: CALCIUM 9.4 mg/dL (8.5-10.1); CREATININE 0.5 mg/dL (0.6-1.0); GFR 121.3; POTASSIUM 5.3 mmol/L (3.5-5.1)
[2020-08-20 21:09] LABS: ALBUMIN 3.3 g/dL (3.4-5.0); ALBUMIN/GLOBULIN RATIO 0.7 (1.0-1.7); TOTAL BILIRUBIN 0.8 mg/dL (0.2-1.0)
--- NOTE | 2020-08-20 21:09 | RAD ---
Exam: CT head INDICATION: Right hand contraction TECHNIQUE: Sequential axial images through the head were obtained without the administration of IV co ntrast. Exposure: One or more of the following in the visualized dose reduction techniques were utilized for this examination: 1. Automated exposure control 2. Adjustment of the MA and/or KV according to patient size 3. Use of iterative of reconstructive technique Comparisons: None FINDINGS: No focal parenchymal lesion or hemorrhage is identified. There is no midline shift or sulcal effaceme nt. No acute vascular territory infarction is identified. Souza-white distinction is preserved. The ventricular system is within normal limits without compression hydrocephalus. The basal cisterns are well maintained. The visualized portions of the paranasal sinuses and mastoid air cells are well-pneumatized. No acute fractures. IMPRESSION: No acute intracranial abnormality. Electronically signed by: Isaac Herzog MD (08/20/2020 9:07 PM) [facility]
--- NOTE | 2020-08-20 21:11 | RAD ---
Exam: Chest one view INDICATION: Aspiration pneumonia TECHNIQUE: Frontal view of the chest Comparisons: 02/10/2017 FINDINGS: The cardiomediastinal silhouette and pulmonary vessels are within normal limits. The lung and pleural spaces are clear. IMPRESSION: No acute cardiopulmonary process. Electronically signed by: Isaac Herzog MD (08/20/2020 9:09 PM) [facility]
[2020-08-20] MEDS ORDERED: IV NORMAL SALINE 1000ML BAG 1,000 ML IV ONE (22:00)
--- NOTE | 2020-08-20 22:14 | RAD ---
Exam: Right wrist 3 views INDICATION: Hand pain TECHNIQUE: Frontal, lateral and oblique views of the right wrist Comparisons: None FINDINGS: There is widening of the scapholunate interval. Diffuse osteopenia. Mild surrounding soft tissue swel ling at the wrist. No acute fractures identified. IMPRESSION: 1. Soft tissue swelling surrounding the wrist without underlying acute osseous abnormality identifie d. 2. Widening of the scapholunate interval, likely related to prior trauma/chronic ligamentous injury. Electronically signed by: Isaac Herzog MD (08/20/2020 10:12 PM) [facility]
[2020-08-20 22:43] VITALS: BP 156/68
== END 2020-08-20 23:00 | disposition home or self-care (01) ==
LOC: ER 19:53
DX: S60.541A External constriction of right hand, initial encounter (principal); K21.9 Gastro-esophageal reflux disease without esophagitis; W49.09XA Other specified item causing external constriction, initial encounter; Y93.89 Activity, other specified; Y92.89 Other specified places as the place of occurrence of the external cause; Y99.8 Other external cause status
CPT/HCPCS: 36415; 70450; 71045; 73110; 80053; 84132; 84484; 85025; 93005; 96360; 99285; J7030

== ENCOUNTER 2020-12-20 08:38 | Emergency (ER) | payer OTHER, MEDICAID ==
[~2020-12-20] VITALS: Ht 149.9 cm; Wt 35.0 kg
[~2020-12-20 08:38] MED LIST changes: +ACET650S PO; +AMLO2.5T5 PO; +CETI10TA16 PO; +DEXA6TAB6 PO; +DOXY-181 PO; +DOXY50TA7 PO; +FERR220S16 PO; +GLYC2TAB4 PO; +GUAI-44 PO; +HEPA50003 SQ; +IBUP-1739 PO; -IBUP100O25 PO; +LOPE1LIQ7 PO; +MULT1TAB92 PO; +OMEP40CA7 PO; +QUET25TA3 PO; +QUET25TA5 PO; +TRAZ-118 PO
[2020-12-20 08:58] VITALS: BP 142/64
--- NOTE | 2020-12-20 09:10 | PHYS DOC ---
Past Medical History Past Medical History: GERD, Hypertension, Other Additional Past Medical Histor: SEASONAL ALLERGIES,MR; Cerebral Palsy Past Surgical History: Hip Replacement Additional Past Surgical Histo: BILATERAL; G-tube Smoking Status: Unknown if ever smoked Alcohol Use: None Drug Use: None General Adult EDM: Chief Complaint: WEAKNESS/GENERALIZED HPI: HPI: 75-year-old female with a history of mental retardation, senior care residents presents to the emergency department with reported shortness of breath from her senior care. Reportedly, the patient was saturating around 88% on room air at the nursing facility and appeared less responsive than usual. Reportedly, the patient had Covid 3 weeks ago, she was recently recovering from pneumonia after her illness with Covid. The patient is unable to provide any history for herself due to her baseline mental handicap. She has been on antibiotics for her pneumonia on an outpatient basis. Review of Systems: Review of Systems: Further ROS is unable to be obtained secondary to the patient's mental handicap. Heart Score: C/O Chest Pain: N/A Allergies: Allergies: Allergies Coded Allergies Type Severity Reaction Last Updated Verified No Known Drug Allergies 11/17/17 No Physical Exam: PE: Constitutional: No acute distress, non-toxic appearance. HENT: Atraumatic, bilateral external ears normal, nose normal. No tactile fever. Eyes: PERRLA, EOMI, conjunctiva normal, no discharge. Neck: Normal range of motion, supple, no stridor. Cardiovascular: Heart rate regular rhythm. 2+ radial pulses Lungs & Thorax: No respiratory distress, symmetrical expansion. Bilateral breat h sounds clear to auscultation Abdomen: Soft, no tenderness Skin: Warm, dry. Extremities: No tenderness, no cyanosis, ROM intact, no edema. Current Patient Data: Labs: Laboratory Tests Test 12/20/20 09:27 12/20/20 09:28 12/20/20 11:05 White Blood Count 7.5 x10^3/uL (4.0-11.0) Red Blood Count 3.68 x10^6/uL (3.50-5.40) Hemoglobin 12.3 g/dL (12.0-15.5) Hematocrit 35.5 % (36.0-47.0) Mean Corpuscular Volume 97 fL (79-100) Mean Corpuscular Hemoglobin 33 pg (25-35) Mean Corpuscular Hemoglobin Concent 35 g/dL (31-37) Red Cell Distribution Width 16.3 % (11.5-14.5) Platelet Count 311 x10^3/uL (140-400) Neutrophils (%) (Auto) 76 % (31-73) Lymphocytes (%) (Auto) 13 % (24-48) Monocytes (%) (Auto) 8 % (0-9) Eosinophils (%) (Auto) 2 % (0-3) Basophils (%) (Auto) 1 % (0-3) Neutrophils # (Auto) 5.7 x10^3/uL (1.8-7.7) Lymphocytes # (Auto) 1.0 x10^3/uL (1.0-4.8) Monocytes # (Auto) 0.6 x10^3/uL (0.0-1.1) Eosinophils # (Auto) 0.1 x10^3/uL (0.0-0.7) Basophils # (Auto) 0.1 x10^3/uL (0.0-0.2) Sodium Level 139 mmol/L (136-145) Potassium Level 4.2 mmol/L (3.5-5.1) Chloride Level 104 mmol/L (98-107) Carbon Dioxide Level 31 mmol/L (21-32) Anion Gap 4 (6-14) Blood Urea Nitrogen 24 mg/dL (7-20) Creatinine 0.7 mg/dL (0.6-1.0) Estimated GFR (Cockcroft-Gault) 82.0 Glucose Level 123 mg/dL (70-99) Calcium Level 9.2 mg/dL (8.5-10.1) SARS-CoV-2 Antigen (Rapid) Negative (NEGATIVE) Urine Collection Type Unknown Urine Color Yellow Urine Clarity Clear Urine pH 6.5 (<5.0-8.0) Urine Specific [place] 1.025 (1.000-1.030) Urine Protein Negative mg/dL (NEG-TRACE) Urine Glucose (UA) Negative mg/dL (NEG) Urine Ketones (Stick) Negative mg/dL (NEG) Urine Blood Negative (NEG) Urine Nitrite Negative (NEG) Urine Bilirubin Negative (NEG) Urine Urobilinogen Dipstick 0.2 mg/dL (0.2 mg/dL) Urine Leukocyte Esterase Negative (NEG) Urine RBC 1-2 /HPF (0-2) Urine WBC 1-4 /HPF (0-4) Urine Squamous Epithelial Cells Occ /LPF Urine Bacteria 0 /HPF (0-FEW) Urine Mucus Mod /LPF Vital Signs: Vital Signs Date Time Temp Pulse Resp B/P (MAP) Pulse Ox O2 Delivery O2 Flow Rate FiO2 12/20/20 08:58 98.2 85 13 142/64 (90) 96 Room Air 98.2 Radiology/Procedures: Radiology/Procedures: XR CHEST 1V History: Reason: shortness of breath / Spl. Instructions: / History: Comparison: December 04, 2020 Findings: Decrease multifocal pulmonary opacities bilaterally. Mild residual patchy mid and bibasilar opacities. No pleural effusion. No pneumothorax. Unchanged heart size. Impression: 1. Decrease multifocal pulmonary opacities. Electronically signed by: Brown Aparicio DO (12/20/2020 9:33 AM) Course & Med Decision Making: Course & Med Decision Making Work-up is as above, she appears to have a improving infection and is currently on outpatient antibiotics. She is not requiring supplemental oxygen and appears to be at her mental baseline. She was discharged back to the senior care to continue her outpatient therapy which seems to be improving her infection. Departure Departure Impression: Primary Impression: Community acquired pneumonia Disposition: HOME / SELF CARE / HOMELESS Condition: STABLE Referrals: SANJANA PIZARRO MD (PCP) Patient Instructions: Pneumonia, Adult, [id number] Additional Instructions: You were seen in the emergency department for a pneumonia. You should return to the ED if you develop worsening cough, shortness of breath, chest pain, or any other new or concerning symptoms. Your cough may persist for a few weeks but your other symptoms should gradually improve. You should make sure to drink plenty of fluids at home. Please continue outpatient antibiotics at home VERO VILLASEÑOR DO Dec 20, 2020 09:10
--- NOTE | 2020-12-20 09:35 | RAD ---
XR CHEST 1V History: Reason: shortness of breath / Spl. Instructions: / History: Comparison: December 04, 2020 Findings: Decrease multifocal pulmonary opacities bilaterally. Mild residual patchy mid and bibasilar opacities . No pleural effusion. No pneumothorax. Unchanged heart size. Impression: 1. Decrease multifocal pulmonary opacities. Electronically signed by: Brown Aparicio DO (12/20/2020 9:33 AM) [facility] [place]
[2020-12-20 09:47] LABS: BASO # 0.1 x10^3/uL (0.0-0.2); BASO % 1 % (0-3); EOS # 0.1 x10^3/uL (0.0-0.7); EOS % 2 % (0-3); HEMATOCRIT 35.5 % (36.0-47.0); HEMOGLOBIN 12.3 g/dL (12.0-15.5); LYMPH % 13 % (24-48); MEAN CORPUSCULAR HEMOGLOBIN 33 pg (25-35); MEAN CORPUSCULAR HGB CONC 35 g/dL (31-37); MEAN CORPUSCULAR VOLUME 97 fL (79-100); MONO # 0.6 x10^3/uL (0.0-1.1); MONO % 8 % (0-9); NEUT # 5.7 x10^3/uL (1.8-7.7); NEUT % 76 % (31-73); PLATELET COUNT 311 x10^3/uL (140-400); RED BLOOD COUNT 3.68 x10^6/uL (3.50-5.40); RED CELL DISTRIBUTION WIDTH 16.3 % (11.5-14.5); WHITE BLOOD COUNT 7.5 x10^3/uL (4.0-11.0)
[2020-12-20 09:54] LABS: CALCIUM 9.2 mg/dL (8.5-10.1); CREATININE 0.7 mg/dL (0.6-1.0); POTASSIUM 4.2 mmol/L (3.5-5.1)
[2020-12-20 11:19] LABS: BILIRUBIN,URINE NEGATIVE (NEG); CLARITY,URINE CLEAR; COLOR,URINE YELLOW; NITRITE,URINE NEGATIVE (NEG); PH,URINE 6.5 (<5.0-8.0); PROTEIN,URINE NEGATIVE (NEG-TRACE); UROBILINOGEN,URINE 0.2 mg/dL (0.2 mg/dL)
[2020-12-20 11:48] LABS: BACTERIA,URINE 0 /HPF (0-FEW)
[2020-12-20] MEDS ORDERED: KETOROLAC 30 MG/ML VIAL. ONE (14:36)
== END 2020-12-20 16:05 | disposition home or self-care (01) ==
LOC: ER 08:38
DX: J18.9 Pneumonia, unspecified organism (principal); Z20.822 Contact with and (suspected) exposure to COVID-19; K21.9 Gastro-esophageal reflux disease without esophagitis; I10 Essential (primary) hypertension
CPT/HCPCS: 36415; 71045; 80048; 81001; 85025; 87426; 99284; U0003; U0005